=== PATIENT | male | born 1985 | race Caucasian/White ===

== ENCOUNTER 2022-07-09 11:52 | Emergency (ER) | payer BC, SELFPAY ==
[2022-07-09 12:26] VITALS: BP 113/80; PULSE 85; RESP 16; TEMP 36.2; O2SAT 97; BMI 21.1
--- NOTE | 2022-07-09 13:37 | CRLHL7_ITS ---
For Patients: As a result of the Century Cures Act, medical imaging exams and procedure reports are released immediately into your electronic medical record. You may view this report before your referring provider. If you have questions, please contact your health care provider. INDICATION: 36 year-old male. Diffuse abdominal pain for 1 week. TECHNIQUE: Contrast-enhanced abdominal pelvic CT. 79 cc nonionic Isovue-370 administered. COMPARISON: None. FINDINGS: Respiratory motion artifact at the lung bases degrades image quality. There is 5-6 mm nodule within the left lower lobe laterally, indeterminate, image 4 series 3., There is no evidence for acute appendicitis. A normal appendix is present for example on image 34 series 4. There are few mildly prominent lymph nodes in the terminal ileal mesentery within the right lower quadrant. Please see for example image 32 series 4. These are likely reactive. There is no evidence for small or large bowel obstruction ileus. The stomach and duodenum are largely decompressed but grossly unremarkable. The liver, spleen, pancreas, gallbladder, both adrenal glands and both kidneys are within normal limits. There are few tiny renal cortical cysts. No solid renal mass or stone. Normal caliber abdominal aorta and iliac arteries. Normal inferior vena cava. Normal urinary bladder, prostate gland, and seminal vesicles. No ascites or hernias. Normal included skeleton. IMPRESSION: 1. No acute abdominopelvic process identified. Specifically there is no evidence for appendicitis or diverticular disease. 2. Few minimally prominent lymph nodes within the terminal ileal mesentery nonspecific but likely reactive. 3. Indeterminate 5-6 mm pulmonary nodule left lung base. In a nonsmoker this is of doubtful clinical significance. Please note that all CT scans at this facility use dose modulation, iterative reconstruction, and/or weight-based dosing when appropriate to reduce radiation dose to as low as reasonably achievable. Dictated by Cornelius Majano MD @ 07/09/2022 3:10:21 PM (Electronically Signed)
--- NOTE | 2022-07-09 13:39 | ED_ITS ---
HPI - General Adult General Chief complaint: Abdominal Pain Stated complaint: Abdominal pain Time Seen by Provider: 07/09/22 12:13 History of Present Illness HPI narrative: Patient is a 36 year white male with significant anxiety for which she takes Xanax. He is trying to get disability for his anxiety. He is also on citalopram. Over the last 9-10 days he has had increasing abdominal discomfort ?he pushes on his abdomen feels ?it's bubbly? he has no real tenderness but does not feel the same as normal after he eats. He has had no weight loss, night sweats, blood in his stool, diarrhea, dysuria frequency or hematuria. Patient has generally been healthy. His mom has rheumatoid arthritis she is here with him today. He has never had her inflammatory bowel disease, Crohn's, ulcerative colitis but does have a family member who does have Crohn's. He has had no weight loss. His anxiety has been higher since he has been sick over the last week. He has not traveled or eaten out. He denies others being sick with similar illness. Stool pattern has been normal Related Data Home Medications Medication Instructions Recorded Confirmed alprazolam 1 mg tablet mg 07/09/22 citalopram 20 mg tablet mg 07/09/22 Allergies Allergy/AdvReac Type Severity Reaction Status Date / Time No Known Drug Allergies Allergy Verified 07/09/22 13:50 Review of Systems Status of ROS: Reports: 10 or more systems reviewed and unremarkable except as noted in History and below PFSH PFS Social History Smoking Status: Never smoker Do you use any of these nicotine containing products: E-Cigarettes Second hand tobacco smoke exposure: No How often do you have a drink containing alcohol: never AUDIT-C Alcohol total score: 0 Non-prescribed substance use: denies use Exam Narrative: Exam Narrative: Objective: Rides in no distress Vital signs unremarkable HEENT is unremarkable no scleral icterus mouth clear Neck is supple Chest clear Heart rhythm regular no murmur Abdomen benign soft nontender no masses no rebound no peritonitis, he does r eport some generalized tenderness but again no rebound or guarding Extremities are no edema Neurologic nonfocal Good peripheral perfusion noted Patient's mental status is appropriate Const: Vital Signs, click to edit/add: Vital Signs - 24 hr 07/09/22 12:26 07/09/22 14:28 07/09/22 14:41 Temperature 97.2 F L Pulse Rate 69 83 Pulse Rate [Right] 85 Respiratory Rate 16 Blood Pressure 122/84 Blood Pressure [Ri ght Upper Arm] 113/80 Pulse Oximetry 97 99 99 Oxygen Delivery Me thod Room Air 07/09/22 15:00 07/09/22 15:01 07/09/22 15:30 Temperature Pulse Rate 73 80 70 Pulse Rate [Right] Respiratory Rate Blood Pressure 119/92 H Blood Pressure [Ri ght Upper Arm] Pulse Oximetry 100 92 99 Oxygen Delivery Me thod Course Vital Signs Vital signs: Initial Vital Signs Temperature 97.2 F L 07/09/22 12:26 Temperature Source Temporal Artery Scan 07/09/22 12:26 Pulse Rate 85 07/09/22 12:26 Pulse Rhythm 07/09/22 12:26 Respiratory Rate 16 07/09/22 12:26 Blood Pressure 113/80 07/09/22 12:26 Blood Pressure Mean 91 07/09/22 12:26 Blood Pressure Position Sitting 07/09/22 12:26 Pulse Oximetry 97 07/09/22 12:26 Oxygen Delivery Method 07/09/22 12:26 Vital Signs Temperature 97.2 F L 07/09/22 12:26 Pulse Rate 85 07/09/22 12:26 Respiratory Rate 16 07/09/22 12:26 Blood Pressure 113/80 07/09/22 12:26 Pulse Oximetry 97 07/09/22 12:26 Oxygen Delivery Method 07/09/22 12:26 Temperature 97.2 F L 07/09/22 12:26 Pulse Rate 70 07/09/22 15:30 Respiratory Rate 16 07/09/22 12:26 Blood Pressure 119/92 H 07/09/22 15:01 Pulse Oximetry 99 07/09/22 15:30 Oxygen Delivery Method 07/09/22 12:26 Medical Decision Making MDM Narrative Medical decision making narrative: Patient reports he has had significant anxiety, has been sick for about a week. He does not feel this is related to anxiety. He is concerned about his general health. Because of his persistent abdominal symptoms I think it be reasonable to get a CT of his abdomen as well as lab studies to reassure him that if in fact they are normal. Disposition pending findings. Ativan IV given as well as 1 L normal saline. Differential would be broad including inflammatory bowel disease, diverticulitis, colitis, acid peptic disease, anxiety. Addendum: The patient's CT scan looks largely unremarkable he has got a small non worrisome nodule in the left lower lung, he does report that he worked its in gentle and multi meal and probably should have a repeat scan in about a year. There is no evidence of appendicitis or other intra-abdominal infection. Patient's laboratory studies look reassuring, he is much more calm after Ativan and fluids IV he does have a couple is lymph nodes in his mesenteric area which certainly could be from a viral infection his labs look reassuring as mention is CRP is less than 0.5 amylase is borderline at 112, and all as viral testing as mention was negative including mono screen. At this point recommend rest fluids Tylenol update his regular doctor in couple of days, return sooner problems or concerns or worsening. Phi was comfortable plan at this time. Lab Data Labs: Lab Results 07/09/22 07/09/22 07/09/22 Range/Units 13:53 13:53 13:53 WBC 5.68 (4.50-11.00) K/uL RBC 4.88 (4.30-5.90) m/uL Hgb 13.8 (13.5-17.5) gm/dL Hct 42.4 (37.0-53.0) % MCV 87 (80-100) fL MCH 28 (26-34) pg MCHC 33 (32-36) gm/dL RDW Coeff of Anirudh 12.5 (11.5-15.5) % Plt Count 194 (140-440) K/uL Neut % (Auto) 55.6 (42.0-72.0) % Lymph % (Auto) 34.9 (20-44) % [place] % (Auto) 6.9 (0.0-11.0) % Eos % (Auto) 2.1 (0.0-7.0) % Baso % (Auto) 0.5 (0.0-3.0) % Neut # (Auto) 3.16 (1.7-7.0) K/uL Lymph # (Auto) 1.98 (0.90-2.90) K/uL [place] # (Auto) 0.40 (0.00-0.90) K/UL Eos # (Auto) 0.12 (0.00-0.50) K/uL Baso # (Auto) 0.03 (0.00-0.30) K/uL Sodium 141 (135-149) mmol/L Potassium 4.4 (3.6-5.1) mmol/L Chloride 106 (96-114) mmol/L Carbon Dioxide 31 (20-32) mmol/L BUN 12 (5-24) mg/dL Creatinine 1.4 (0.5-1.5) mg/dL Estimated Creat Clear 74.88 Estimated GFR 67 ml/min Glucose 87 (60-115) mg/dL Calcium 9.1 (8.4-10.6) mg/dL Total Bilirubin 0.6 (0.1-1.5) mg/dL Direct Bilirubin 0.2 (0.0-0.5) mg/dL AST 16 (12-35) U/L ALT 15 (4-50) U/L Alkaline Phosphatase 45 (40-150) U/L C-Reactive Protein < 0.5 L (0.5-1.0) mg/dL Total Protein 6.6 (6.0-8.3) g/dL Albumin 4.2 (3.3-5.0) g/dL Amylase 112 H (18-89) U/L TSH (0.270-4.20) uIU/mL Urine Color (Yellow) Urine Appearance (Clear) Urine pH (5.0-8.5) Ur Specific [place] (1.000-1.030) Urine Protein (Negative) Urine Glucose (UA) (Negative) Urine Ketones (Negative) Urine Blood (Negative) Urine Nitrite (Negative) Urine Bilirubin (Negative) Urine Urobilinogen (0.2-1.0) Ur Leukocyte Esterase (Negative) Urine RBC (0-2) Urine WBC (0-5) Urine WBC Clumps (None) Ur Squamous Epith Cells (None-Few) Urine Bacteria (None) SARS-CoV-2 (PCR) (Negative) Monoscreen Negative (Negative) Influenza Type A (PCR) (Negative) Influenza Type B (PCR) (Negative) RSV (PCR) (Negative) 07/09/22 07/09/22 07/09/22 Range/Units 13:53 13:53 15:54 WBC (4.50-11.00) K/uL RBC (4.30-5.90) m/uL Hgb (13.5-17.5) gm/dL Hct (37.0-53.0) % MCV (80-100) fL MCH (26-34) pg MCHC (32-36) gm/dL RDW Coeff of Anirudh (11.5-15.5) % Plt Count (140-440) K/uL Neut % (Auto) (42.0-72.0) % Lymph % (Auto) (20-44) % [place] % (Auto) (0.0-11.0) % Eos % (Auto) (0.0-7.0) % Baso % (Auto) (0.0-3.0) % Neut # (Auto) (1.7-7.0) K/uL Lymph # (Auto) (0.90-2.90) K/uL [place] # (Auto) (0.00-0.90) K/UL Eos # (Auto) (0.00-0.50) K/uL Baso # (Auto) (0.00-0.30) K/uL Sodium (135-149) mmol/L Potassium (3.6-5.1) mmol/L Chloride (96-114) mmol/L Carbon Dioxide (20-32) mmol/L BUN (5-24) mg/dL Creatinine (0.5-1.5) mg/dL Estimated Creat Clear Estimated GFR ml/min Glucose (60-115) mg/dL Calcium (8.4-10.6) mg/dL Total Bilirubin (0.1-1.5) mg/dL Direct Bilirubin (0.0-0.5) mg/dL AST (12-35) U/L ALT (4-50) U/L Alkaline Phosphatase (40-150) U/L C-Reactive Protein (0.5-1.0) mg/dL Total Protein (6.0-8.3) g/dL Albumin (3.3-5.0) g/dL Amylase (18-89) U/L TSH 2.160 (0.270-4.20) uIU/mL Urine Color Yellow (Yellow) Urine Appearance Clear (Clear) Urine pH 7.0 (5.0-8.5) Ur Specific [place] 1.015 (1.000-1.030) Urine Protein Negative (Negative) Urine Glucose (UA) Negative (Negative) Urine Ketones Negative (Negative) Urine Blood Negative (Negative) Urine Nitrite Negative (Negative) Urine Bilirubin Negative (Negative) Urine Urobilinogen 0.2 (0.2-1.0) Ur Leukocyte Esterase Negative (Negative) Urine RBC 0-2 (0-2) Urine WBC 0-2 (0-5) Urine WBC Clumps None (None) Ur Squamous Epith Cells None (None-Few) Urine Bacteria None (None) SARS-CoV-2 (PCR) Negative SARS-CoV-2 (Negative) Monoscreen (Negative) Influenza Type A (PCR) Negative PCR FLU A (Negative) Influenza Type B (PCR) Negative PCR FLU B (Negative) RSV (PCR) Negative PCR RSV (Negative) Discharge Plan Discharge Clinical Impression: Anxiety, Abdominal pain Patient Disposition: Home w/ Parent or Adult Condition: Improved Additional Instructions: Thank you rest light activity, yogurt, 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 Otherwise follow-up with primary care in the next 2-3 days. Activity Level: Light activity Discharge Diet: Regular Prescriptions: No Action alprazolam 1 mg tablet Label Comments: TAKE ONE TABLET BY MOUTH THREE TIMES DAILY NEEDED citalopram 20 mg tablet Label Comments: TAKE ONE TABLET BY MOUTH ONE TIME DAILY Follow Up/Referrals: Nehemiah Veloz MD [Staff Physician] - Stand Alone Forms: [employer] Info Instructions
[2022-07-09] MEDS: LORazepam 2 MG/ML inj 1 MG IVP (13:56)
[2022-07-09] MEDS: 0.9 % SODIUM CHLORIDE 1000 ml 1,000 ML 6000 ML IV (13:56)
[2022-07-09 14:14] LABS: Mono Screen* Negative (Negative)
[2022-07-09 14:16] LABS: Basophils Absolute Auto 0.03 K/uL (0.00-0.30); Basophils Percent Auto 0.5 % (0.0-3.0); Eosinophils Absolute Auto 0.12 K/uL (0.00-0.50); Eosinophils Percent Auto 2.1 % (0.0-7.0); Hematocrit 42.4 % (37.0-53.0); Hemoglobin* 13.8 gm/dL (13.5-17.5); Lymphocytes Absolute Auto 1.98 K/uL (0.90-2.90); Lymphocytes Percent Auto 34.9 % (20-44); Mean Corpuscular HGB Conc 33 gm/dL (32-36); Mean Corpuscular Hemoglobin 28 pg (26-34); Mean Corpuscular Volume 87 fL (80-100); Monocytes Percent Auto 6.9 % (0.0-11.0); Neutrophils Absolute Auto 3.16 K/uL (1.7-7.0); Neutrophils Percent Auto 55.6 % (42.0-72.0); Platelet Count* 194 K/uL (140-440); RDW Coefficient of Variation % 12.5 % (11.5-15.5); Red Blood Count 4.88 m/uL (4.30-5.90); White Blood Count* 5.68 K/uL (4.50-11.00)
[2022-07-09 14:24] LABS: Slide Review Reflex No
[2022-07-09 14:28] VITALS: BP 122/84; PULSE 69; O2SAT 99
[2022-07-09 14:31] LABS: Chloride* 106 mmol/L (96-114)
[2022-07-09 14:32] LABS: Albumin* 4.2 g/dL (3.3-5.0); Potassium* 4.4 mmol/L (3.6-5.1); Sodium* 141 mmol/L (135-149)
[2022-07-09 14:34] LABS: Amylase* 112 U/L (18-89)
[2022-07-09 14:35] LABS: Alkaline Phosphatase* 45 U/L (40-150); Aspartate Amino Transferase* 16 U/L (12-35); Bilirubin Direct* 0.2 mg/dL (0.0-0.5); Bilirubin Total* 0.6 mg/dL (0.1-1.5); Blood Urea Nitrogen* 12 mg/dL (5-24); Carbon Dioxide* 31 mmol/L (20-32); Creatinine* 1.4 mg/dL (0.5-1.5); Est. Creatinine Clearance* 74.88; Estimated Glomerular Filt Rate 67 ml/min; Glucose* 87 mg/dL (60-115); Total Protein* 6.6 g/dL (6.0-8.3)
[2022-07-09 14:36] LABS: Alanine Aminotransferase* 15 U/L (4-50); Calcium* 9.1 mg/dL (8.4-10.6)
[2022-07-09 14:41] VITALS: PULSE 83; O2SAT 99
[2022-07-09 14:46] LABS: C Reactive Protein* < 0.5 mg/dL (0.5-1.0)
[2022-07-09 14:50] LABS: PCR FLU A Negative PCR FLU A (Negative); PCR FLU B Negative PCR FLU B (Negative); PCR RSV Negative PCR RSV (Negative)
[2022-07-09 14:53] LABS: SARS PCR* Negative SARS-CoV-2 (Negative)
[2022-07-09 15:00] VITALS: PULSE 73; O2SAT 100
[2022-07-09 15:01] VITALS: BP 119/92; PULSE 80; O2SAT 92
[2022-07-09 15:30] VITALS: PULSE 70; O2SAT 99
[2022-07-09 16:04] LABS: Appearance Urine Clear (Clear); Bilirubin Urine Negative (Negative); Blood Urine Negative (Negative); Color Urine Yellow (Yellow); Glucose Urine Negative (Negative); Ketones Urine Negative (Negative); Leukocyte Esterase Urine Negative (Negative); Nitrite Urine Negative (Negative); Protein Urine Negative (Negative); Specific Gravity Urine 1.015 (1.000-1.030); Urobilinogen Urine 0.2 (0.2-1.0)
[2022-07-09 16:27] LABS: RBC Urine 0-2 (0-2); WBC Urine 0-2 (0-5)
== END 2022-07-09 16:01 | disposition home or self-care (01) ==
PROVIDERS: Emergency Provider Family Medicine
DX: R10.9 Unspecified abdominal pain (principal)
CPT/HCPCS: 36415; 74177; 80048; 80076; 81001; 82150; 84443; 85025; 86140; 86308; 87502; 87634; 87635; 96374; 99283; 99284; 99285; J2060; J7030; Q9967

== ENCOUNTER 2023-02-09 03:53 | Emergency (ER) | payer BC, SELFPAY ==
[2023-02-09 03:58] VITALS: BP 123/83; PULSE 85; RESP 16; TEMP 36.1; O2SAT 99
[2023-02-09] MEDS: TETANUS/DIPHTH/PERTUSSIS 0.5 ML SYRINGE IM (04:24)
[2023-02-09 04:55] LABS: Albumin* 4.6 g/dL (3.3-5.0); Chloride* 103 mmol/L (96-114)
[2023-02-09 04:56] LABS: Potassium* 3.9 mmol/L (3.6-5.1); Sodium* 140 mmol/L (135-149)
[2023-02-09 04:58] LABS: Alanine Aminotransferase* 22 U/L (4-50); Alkaline Phosphatase* 69 U/L (40-150); Anion Gap 10 mEq/L (7-15); Aspartate Amino Transferase* 19 U/L (12-35); Bilirubin Total* 0.8 mg/dL (0.1-1.5); Blood Urea Nitrogen* 18 mg/dL (5-24); Carbon Dioxide* 27 mmol/L (20-32); Creatinine* 1.6 mg/dL (0.5-1.5); Estimated Glomerular Filt Rate 57 ml/min; Glucose* 85 mg/dL (60-115); Total Protein* 6.9 g/dL (6.0-8.3)
[2023-02-09 04:59] LABS: Calcium* 8.9 mg/dL (8.4-10.6)
--- NOTE | 2023-02-09 05:29 | ED_ITS ---
HPI - General Adult General Chief complaint: Unspecified Complaint, Adult Stated complaint: has been feeling ill Time Seen by Provider: 02/09/23 04:11 History of Present Illness HPI narrative: Patient is a 37-year-old gentleman who has severe chronic anxiety. He stepped on a tack several days ago and has no signs of cellulitis is worried this tetanus shot is not up-to-date. There is no remaining redness from the puncture site. No bleeding. Patient feels like he has muscle twitches general malaise body aches fatigue he feels like there is something definitely wrong. He has no localizing symptoms otherwise in his usual state of health. He has had no nausea no vomiting no fevers no chills his home medication is citalopram and alprazolam. He has had no drugs or alcohol and otherwise is feeling his usual state health. He i not using any substances at this time. Related Data Home Medications Medication Instructions Recorded Confirmed alprazolam 1 mg tablet mg 07/09/22 citalopram 20 mg tablet mg 07/09/22 Allergies Allergy/AdvReac Type Severity Reaction Status Date / Time No Known Drug Allergies Allergy Verified 07/09/22 13:50 Review of Systems Status of ROS: Reports: 10 or more systems reviewed and unremarkable except as noted in History and below [facility] Social History Smoking Status: Never smoker Do you use any of these nicotine containing products: E-Cigarettes Second hand tobacco smoke exposure: No How often do you have a drink containing alcohol: never AUDIT-C Alcohol total score: 0 Non-prescribed substance use: denies use Exam Narrative: Exam Narrative: EXAM GENERAL: Patient appears comfortable and well. Patient is very thin. EYES: No scleral icterus. ENT: Tympanic membranes and oropharynx normal. THYROID: no thyroid nodules or thyromegaly. LYMPH: No supraclavicular or cervical lymphadenopathy. SKIN: Visible skin seen during exam normal or with benign process only. EXT: No dependent lower extremity pedal edema. HEART: Regular rate and rhythm with no murmurs, rubs, or gallops. LUNGS: Clear to auscultation bilaterally with no crackles or wheezes. ABD: Soft, non tender, non distended. PSYCH: Good eye contact, speech is not pressured. Const: Vital Signs, click to edit/add: Vital Signs - 24 hr 02/09/23 03:58 Temperature 97.0 F L Pulse Rate [Left P ulse Oximeter] 85 Respiratory Rate 16 Blood Pressure [Ri ght Upper Arm] 123/83 Pulse Oximetry 99 Oxygen Delivery Me thod Room Air Course Course Hospital Course: Patient seen and examined. Vital Signs Vital signs: Initial Vital Signs Temperature 97.0 F L 02/09/23 03:58 Temperature Source Temporal Artery Scan 02/09/23 03:58 Pulse Rate 85 02/09/23 03:58 Pulse Rhythm Regular 02/09/23 03:58 Respiratory Rate 16 02/09/23 03:58 Blood Pressure 123/83 02/09/23 03:58 Blood Pressure Mean 96 02/09/23 03:58 Blood Pressure Position Sitting 02/09/23 03:58 Pulse Oximetry 99 02/09/23 03:58 Oxygen Delivery Method Room Air 02/09/23 03:58 Vital Signs Temperature 97.0 F L 02/09/23 03:58 Pulse Rate 85 02/09/23 03:58 Respiratory Rate 16 02/09/23 03:58 Blood Pressure 123/83 02/09/23 03:58 Pulse Oximetry 99 02/09/23 03:58 Oxygen Delivery Method Room Air 02/09/23 03:58 Temperature 97.0 F L 02/09/23 03:58 Pulse Rate 85 02/09/23 03:58 Respiratory Rate 16 02/09/23 03:58 Blood Pressure 123/83 02/09/23 03:58 Pulse Oximetry 99 02/09/23 03:58 Oxygen Delivery Method Room Air 02/09/23 03:58 Medical Decision Making [facility] Narrative Medical decision making narrative: Patient is a 37-year-old gentleman with history of anxiety comes in today after stepping on a tack and feeling like he has body aches general malaise weakness and fatigue. I will see any major injuries. He is very thin. I did send off CBC and basic metabolic panel. Does show that his creatinine is 1.6 we do a previous creatinine 1.4. I do not believe this is was getting his symptoms but did inform him of these results. We did update his tetanus shot and I did recommend close outpatient follow-up. Lab Data Labs: Lab Results 02/09/23 Range/Units 04:31 WBC 4.83 (4.50-11.00) K/uL RBC 5.09 (4.30-5.90) m/uL Hgb 14.1 (13.5-17.5) gm/dL Hct 44.2 (37.0-53.0) % MCV 87 (80-100) fL MCH 28 (26-34) pg MCHC 32 (32-36) gm/dL RDW Coeff of Anirudh 12.1 (11.5-15.5) % Plt Count 176 (140-440) K/uL Neut % (Auto) 61.5 (42.0-72.0) % Lymph % (Auto) 26.1 (20-44) % [place] % (Auto) 8.1 (0.0-11.0) % Eos % (Auto) 2.9 (0.0-7.0) % Baso % (Auto) 0.8 (0.0-3.0) % Neut # (Auto) 2.97 (1.7-7.0) K/uL Lymph # (Auto) 1.26 (0.90-2.90) K/uL [place] # (Auto) 0.40 (0.00-0.90) K/UL Eos # (Auto) 0.14 (0.00-0.50) K/uL Baso # (Auto) 0.04 (0.00-0.30) K/uL Abs Immat Gran (auto) 0.03 (0.00-0.30) K/uL Imm/Tot Granulo (auto) 0.6 % Sodium 140 (135-149) mmol/L Potassium 3.9 (3.6-5.1) mmol/L Chloride 103 (96-114) mmol/L Carbon Dioxide 27 (20-32) mmol/L Anion Gap 10 (7-15) mEq/L BUN 18 (5-24) mg/dL Creatinine 1.6 H (0.5-1.5) mg/dL Estimated GFR 57 ml/min Glucose 85 (60-115) mg/dL Calcium 8.9 (8.4-10.6) mg/dL Total Bilirubin 0.8 (0.1-1.5) mg/dL AST 19 (12-35) U/L ALT 22 (4-50) U/L Alkaline Phosphatase 69 (40-150) U/L Total Protein 6.9 (6.0-8.3) g/dL Albumin 4.6 (3.3-5.0) g/dL Discharge Plan Discharge Clinical Impression: Weakness Condition: Stable Instructions: Weakness (ED) Additional Instructions: Continue current care Follow-up with your doctor to discuss laboratory studies. Activity Level: No Restrictions Discharge Diet: Regular Prescriptions: No Action alprazolam 1 mg tablet Patient Comments: TAKE ONE TABLET BY MOUTH THREE TIMES DAILY NEEDED citalopram 20 mg tablet Patient Comments: TAKE ONE TABLET BY MOUTH ONE TIME DAILY Follow Up/Referrals: Provider,Not a Local [Primary Care Provider] - Stand Alone Forms: MyHealth Info Instructions
[2023-02-09 05:50] LABS: Basophils Absolute Auto 0.04 K/uL (0.00-0.30); Basophils Percent Auto 0.8 % (0.0-3.0); Eosinophils Absolute Auto 0.14 K/uL (0.00-0.50); Eosinophils Percent Auto 2.9 % (0.0-7.0); Hematocrit 44.2 % (37.0-53.0); Hemoglobin* 14.1 gm/dL (13.5-17.5); Immature Granulocytes Abs Auto 0.03 K/uL (0.00-0.30); Immature Granulocytes Pct Auto 0.6 %; Lymphocytes Absolute Auto 1.26 K/uL (0.90-2.90); Lymphocytes Percent Auto 26.1 % (20-44); Mean Corpuscular HGB Conc 32 gm/dL (32-36); Mean Corpuscular Hemoglobin 28 pg (26-34); Mean Corpuscular Volume 87 fL (80-100); Monocytes Percent Auto 8.1 % (0.0-11.0); Neutrophils Absolute Auto 2.97 K/uL (1.7-7.0); Neutrophils Percent Auto 61.5 % (42.0-72.0); Platelet Count* 176 K/uL (140-440); RDW Coefficient of Variation % 12.1 % (11.5-15.5); Red Blood Count 5.09 m/uL (4.30-5.90); White Blood Count* 4.83 K/uL (4.50-11.00)
[2023-02-09 05:55] LABS: Slide Review Reflex No
[2023-02-09 05:58] VITALS: BP 132/68; PULSE 72; RESP 16; O2SAT 99
== END 2023-02-09 06:06 | disposition home or self-care (01) ==
PROVIDERS: Emergency Provider Internal Medicine
DX: R53.1 Weakness (principal); Z23 Encounter for immunization
CPT/HCPCS: 36415; 80053; 85025; 90471; 90715; 99283; 99284

== ENCOUNTER 2025-01-02 00:03 | Inpatient (IN) | payer BC, SELFPAY ==
[2025-01-02] VITALS (42 sets, daily range): BP systolic 83–113; BP diastolic 51–85; PULSE 76–95; RESP 14–23; TEMP 36.1–39.5; O2SAT 91–99; BMI 21.8
--- OUTSIDE RECORDS SUMMARY | 2025-01-02 00:06 | XMS_ITS | Clinical Summary ---
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 1-2 hours every night before your regular bedtime and go outside or use a bright light every morning for at least 30 min. Ensure it is a brand which is [facility]SING HOME verified. 45 Tablet 3 4 Active propranoloL (INDERAL) 60 mg tabletIndicatio ns:Panic disorder with agoraphobia Take 1 tablets (60 mg) by mouth twice daily. May also take 0.5-1 tablet (30-60 mg) once daily if needed for anxiety. Wait 1 hour before repeating a dose. 270 Tablet 3 4 Active FLUoxetine 20 mg capsuleIndicati ons:Generalized anxiety disorder,Panic disorder with agoraphobia Take 1 Capsule (20 mg) by mouth once daily. Further refills will be prescribed during an appointment 90 Capsule 5 Active citalopram 20 mg tabletIndicatio ns:Generalized anxiety disorder,Panic disorder with agoraphobia Take 1 Tablet (20 mg) by mouth once daily. 90 Tablet 3 5 Active clonazePAM 0.5 mg tabletIndicatio ns:Generalized anxiety disorder,Panic disorder with agoraphobia Take 1.5 Tablets (0.75 mg) by mouth once daily. In addition to the 1 mg tablet at bedtime 45 Tablet 2 5 Active clonazePAM 1 mg tabletIndicatio ns:Generalized anxiety disorder,Panic disorder with agoraphobia Take 1 Tablet (1 mg) by mouth at bedtime. 30 Tablet 2 5 Active FLUoxetine (PROZAC) 10 mg capsuleIndicati ons:Panic disorder with agoraphobia,Gen eralized anxiety disorder Take 1 Capsule (10 mg) by mouth once daily. 90 Capsule 3 4 025 Discontin ued(*Medi cation adjustmen t) citalopram (CELEXA) 20 mg tabletIndicatio ns:Generalized anxiety disorder,Panic disorder with agoraphobia Take 1 Tablet (20 mg) by mouth once daily in the morning. In addition to the evening dose 90 Tablet 3 5 025 Discontin ued(*Medi cation adjustmen t) clonazePAM 0.5 mg tabletIndicatio ns:Generalized anxiety disorder,Panic disorder with agoraphobia Take 1.5 Tablets (0.75 mg) by mouth once daily. In addition to the 1 mg tablet at bedtime 45 Tablet 2 5 025 Discontin ued(*Medi cation adjustmen t) clonazePAM 1 mg tabletIndicatio ns:Generalized anxiety disorder,Panic disorder with agoraphobia TAKE ONE TABLET BY MOUTH AT BEDTIME 30 Tablet 2 5 025 Discontin ued(*Medi cation adjustmen t) Active Problems Problem Noted Date Diagnosed Date Suspected Circadian rhythm s leep-wake disorder, non-24 hour sleep-wake type, persistent 11/29/2023 Generalized anxiety disorder, including health a nxiety 01/08/2023 Elevated blood pressure read ing without diagnosis of hypertension 08/08/2017 Panic disorder with agoraphobia 05/02/2015 Controlled substance agreeme nt signed with psychiatry for benzodiazepines 10/30/2012 Overview (10/08/2022): Julián Nunez MD .................... 10/08/2022 3:39 PM Resolved Problems Problem Noted Date Diagnosed Date Resolved Date Anxiety state, unspecified 06/03/2007 1 07/02/2014 Encounters Date Type Department Care Team Description 12/10/2024 10:00 AM CDT Telemedicine [facility] [address] [place] [address] Julián Nunez MD Medication Management 12/10/2024 Travel 10/12/2024 10:00 AM CDT Office Visit [facility] [address] [facility] [address] Julián Nuenz MD Medication Management; Follow Up 10/11/2024 Travel from Last 3 Months Immunizations Immunization Administration Dates Next Due DTaP 1985 Influenza, IIV3 (Age 6-35 mos) 05/09/2009 Polio Virus, Unspecified 1985 Tdap 11/04/2008 Family History Medical History Relation Name Comments Other Father FACTOR V [employer]ID[employer]ATION Alcoholism Maternal Uncle Autoimmune disease Maternal Uncle Drug Abuse Maternal Uncle Rheum arthritis Mother Thyroid Disease Mother Cancer-colon Neg. 1 Cancer-prostate Neg. 2 Diabetes Neg. 3 Heart Disease Neg. 4 Crohn's disease Other Cousin ADD / ADHD Sister Arrhythmia No Family History Relation Name Status Comments Father Maternal Uncle Alive Mother Neg. 1 Neg. 2 Neg. 3 Neg. 4 Other Cousin Sister Social History Tobacco Use Types Packs/Day Years Used Date Smoking Tobacco: Never Smokeless Tobacco: Former Chew Quit: 11/20/2021 Tobacco Cessation:Counseling Given: Not Answered Comments:vapes Alcohol Use Standard Drinks/Week Comments Not Currently 0 (1 standard drink = 0.6 oz pur e alcohol) last drink prior to 2017 PHQ-2 Answer Date Recorded PHQ-2 TOTAL SCORE 0 12/10/2024 Alcohol Use Answer Date Recorded How often do you have a drink containing alcohol ? 1 10/04/2022 How many drinks containing a lcohol do you have on a typical day when you are drinking? 0 10/04/2022 How often do you have five or more drinks on one occasion? 0 10/04/2022 Financial Resource Strain Answer Date R ecorded Difficulty of Paying Living Expenses Not on file 06/14/2021 Difficulty of Paying Living Expenses Not on file 06/14/2021 Education Answer Date Recorded What is the highest level of school you have completed or the highest degree you have received? 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 Gender Identity Not on file Sexual Orientation Not on file Occupation Industry Job Start Date Job End Date unemployed Not on file Not on file Not on file Obstetrics History Last Filed Vital Signs Vital Sign Reading Time Taken Comments Blood Pressure 154/95 10/12/2024 10:05 AM CDT Pulse 54 10/12/2024 10:05 AM CDT Temperature 37.2 C (99 F) 12/04/2021 10:53 AM CDT Respiratory Rate - - Oxygen Saturation 99% 07/26/2022 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 Inhaled Oxygen Concentration - - Weight 74.8 kg (165 lb) 10/12/2024 10:02 AM CDT Height 185.4 cm (6' 1) 07/26/2022 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 Body Mass Index 21.77 07/26/2022 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 Plan of Treatment Upcoming Encounters Date Type Department Care Team (Late st Contact Info) Description 02/25/2025 10:00 AM CDT Telemedicine [facility] [address] [place] [address] Julián Nunez MD [address] [place] [address] Health Maintenance Due Date Last Done Comments HIV for age 15-65 2000 Hepatitis C screening for age 18-79 08/24/2003 Hepatitis B series for 19+ (1 of 3 - 19+ 3-dose series) 2004 Tetanus booster 11/04/2018 11/04/2008 Lipids for age 35-44 2020 BMI (ht and wt on same day) for age 18+ 07/26/2023 07/26/2022, 12/04/2021, 05/27/2019, Additional history exists COVID-19 vaccine series ( season) 2024 12/13/2020 Influenza Vaccine (#1) 2025 05/09/2009 Depression screening for age 12+ 12/10/2025 12/10/2024, 10/12/2024, 09/03/2024, Additional history exists Pneumococcal series for age 6-49 Aged Out No longer eligible based on patient's age to complete this topic Goals Goal Patient Goal Type Associated Problems Recent Progress Patient-Stated? Author BLOOD PRESSURE - Maintains BP less than 140/90 Blood Pressure No Aidan Choi MD Procedures Procedure Name Priority Date/Time Associated Diagnosis Comments COMPLIANCE DRUG ANALYSIS Routine 10/12/2024 10:42 AM CDT Controlled substance agreement signed with psychiatry for benzodiazepines Long-term use of high-risk medication from Last 3 Months Results * (ABNORMAL) COMPLIANCE DRUG ANALYSIS (10/12/2024 10:42 AM CDT) 6-MONOACETYL MORPHINE NEG NEG ng/mL 10/14/2024 11:37 AM T [facility] AMPHETAMINE URINE NEG <=500 ng/mL 10/14/2024 11:37 AM T [facility] BARBITURATE URINE NEG <=200 ng/mL 10/14/2024 11:37 AM T [facility] BENZODIAZEPINE URINE NEG <=100 ng/mL 10/14/2024 11:37 AM T [facility] BUPRENORPHRINE URINE NEG <=5 ng/mL 09/17 11:37 AM T [facility] COCAINE METAB URINE NEG <=300 ng/mL 10/14/2024 11:37 AM T [facility] ETHYLGLUCURONIDE URINE NEG <=250 ng/mL 10/14/2024 11:37 AM T [facility] FENTANYL URINE NEG <=5 ng/mL 10/14/2024 11:37 AM T [facility] METHADONE URINE NEG <=300 ng/mL 10/14/2024 11:37 AM T [facility] OPIATES URINE NEG <=300 ng/mL 10/14/2024 11:37 AM T [facility] OXYCODONE URINE NEG <=100 ng/mL 10/14/2024 11:37 AM T [facility] PROPOXYPHENE URINE NEG <=300 ng/mL 10/14/2024 11:37 AM T [facility] THC 50 URINE NEG <=50 ng/mL 10/14/2024 11:37 AM [facility] TRAMADOL NEG <=200 ng/mL 10/14/2024 11:37 AM [facility] PH URINE 6.6 5.0 - 7.0 10/14/2024 11:37 AM [facility] CREAT UR 16(L) >=20 mg/dL 10/14/2024 11:37 AM [facility] MASS SPECTROMETRY URINE See Below 10/14/2024 11:37 AM [facility] Comment:Citalopram and Cital opram metabolite present. Urine URINE SPECIMEN / Unknown Non-Blood / Unknown 10/12/2024 10:42 AM T 10/12/2024 10:[address] [facility] - 10/14/2024 11:37 AM [facility] Current Outpatient Medications: citalopram (CELEXA) 20 mg tablet, Take 1 Tablet (20 mg) by mouth once daily in the morning. In addition to the evening dose citalopram 10 mg tablet, Take 0.5 Tablets (5 mg) by mouth once daily. in the evening in addition to the morning dose clonazePAM 0.5 mg tablet, Take 1.5 Tablets (0.75 mg) by mouth once daily. In addition to the 1 mg tablet at bedtime clonazePAM 1 mg tablet, TAKE ONE TABLET BY MOUTH AT BEDTIME FLUoxetine (PROZAC) 10 mg capsule, Take 1 Capsule (10 mg) by mouth once daily. melatonin 1 mg tablet, Take 0.5 Tablets (0.5 mg) by mouth once daily in the evening. 1-2 hours every night before your regular bedtime and go outside or use a bright light every morning for at least 30 min. Ensure it is a brand which is [facility] verified. propranoloL (INDERAL) 60 mg tablet, Take 1 tablets (60 mg) by mouth twice daily. May also take 0.5-1 tablet (30-60 mg) once daily if needed for anxiety. Wait 1 hour before repeating a dose. No current facility-administered medications for this visit. As of 10/12/2024 Release to patient->Immediate us Julián Nunze MD URINE Final Result [facility] [address] [place] [address], [place] from Last 3 Months Insurance COUNT INCLUDES THE [facility] Care Teams It Network Administrator Relationship Specialty Start Date End Date Votel, Michael Grissom MD [address] [place] [address] PCP - General Family Practice 10/08/22
--- NOTE | 2025-01-02 00:20 | ED.ABDPAIN ---
HPI - Abdominal Pain General Time Seen by Provider: 00:20 Date Seen: 01/02/25 Chief Complaint: Abdominal Pain Stated Complaint: abd pain, fever Time Seen by Provider: 01/02/25 00:20 Source: patient Mode of arrival: ambulatory Limitations: no limitations History of Present Illness HPI narrative: 39-year-old male who comes in with 3 days of fever and abdominal pain along with nausea. Pain is in lower abdomen. Denies urinary symptoms. Denies cough, shortness of breath, chest pain. Has been taking aspirin for this. No diarrhea. No prior surgeries. Related Data Home Medications ?Medication ?Instructions ?Recorded ?Confirmed alprazolam 1 mg tablet mg 07/09/22 citalopram 20 mg tablet mg 07/09/22 Allergies Allergy/AdvReac Type Severity Reaction Status Date / Time No Known Drug Allergies Allergy Verified 07/09/22 13:50 PFSH [facility] Social History Smoking Status: Never smoker Do you use any of these nicotine containing products: E-Cigarettes Second hand tobacco smoke exposure: No How often do you have a drink containing alcohol: never AUDIT-C Alcohol total score: 0 Non-prescribed substance use: denies use Exam Narrative: Exam Narrative: General: Ill-appearing Head: Atraumatic and normocephalic Eyes: Pupils are equal reactive, extraocular motions intact, conjunctiva clear ENT: External nose and ears are normal, posterior pharynx without erythema or exudate, dry mucous membranes, cracked lips Neck: No midline cervical tenderness, full spontaneous range of motion the neck, trachea midline, no adenopathy Heart: Regular rate and rhythm no murmurs or thrills Lungs: Clear to auscultation bilaterally without wheezes or crackles Abdomen: Soft, right-sided mid and lower abdominal tenderness, nondistended with active bowel sounds Musculoskeletal: No tenderness, deformity, or edema Neurologic: Awake, alert, and oriented x3, no gross focal neurologic deficits, cranial nerves intact as tested Psych: Mood and affect are appropriate Skin: No rashes Const: Vital Signs, click to edit/add: Vital Signs - 24 hr 01/02/25 00:07 01/02/25 01:15 01/02/25 01:30 Temperature 103.1 F H Pulse Rate [Left P ulse Oximeter] 93 95 Respiratory Rate 16 16 Blood Pressure [Ri ght Upper Arm] 111/85 113/73 113/76 Pulse Oximetry 97 96 95 Oxygen Delivery Me thod Room Air Room Air Room Air 01/02/25 01:45 Temperature Pulse Rate [Left P ulse Oximeter] 95 Respiratory Rate 14 Blood Pressure [Ri ght Upper Arm] 106/73 Pulse Oximetry 93 Oxygen Delivery Me thod Course Course ED Course: Reviewed most recent psychiatry visit from September 2024, at that time patient is reporting severe anxiety in public places in the been tapering citalopram, was on Prozac, Klonopin , propanolol. Patient seen examined, presents today with abdominal pain, fever, nausea. This been going on 3 days. On exam here, patient is ill-appearing with dry mucous membranes, cracked lips, febrile although heart rate does not demonstrate expected tachycardia with this. Right-sided lower abdominal tenderness. Concern for intra-abdominal infection, appendicitis does not typically cause high fevers but certainly patient's tenderness is the right area, concern for perforation given fever and duration of symptoms. Also consider liver abscess, acute cholecystitis. Labs ordered along with fluids, Dilaudid, CT abdomen and pelvis. Abnormal ST depressions on telemetry, EKG ordered. Reevaluation(s) Time of Reevaluation #1: 01:05 Reevaluation #1: Labs independently interpreted by me with normal CBC although left shift, normal hemoglobin, creatinine 1.8, magnesium slightly low 1.4, normal lipase, normal hepatic panel. Time of Reevaluation #2: 01:13 Reevaluation #2: CT scan of the chest and panel interpreted by me negative for acute findings. CT scan of the abdomen shows small amount of fluid by the liver, inflammation small-bowel, evidence of appendicitis concerning for perforation. EKG independently interpreted by me performed at 1:22 a.m. demonstrates normal sinus rhythm rate 96, nonspecific ST depressions in 2, 3, AVF, V4 through V6, normal axis, QTC 411, AL 174. No prior for comparison. Rechecked in updated patient and family regarding findings and plan, radiology interpretation CT scan is pending at this point. Troponin added due to EKG changes the patient has had no chest pain. Time of Reevaluation #3: 01:56 Reevaluation #3: Care discussed with Dr. Guerrero, general surgery, who reviewed the images. Patient need to have appendectomy but if troponin is elevated, will need to transfer for higher level of care and further cardiac evaluation. Troponin is pending currently. Additional Reevaluation(s): 2:20 a.m. troponin negative, care discussed with Dr. Jarrett and plan for patient to go to the OR with admission afterward Vital Signs Vital signs: Initial Vital Signs Temperature 103.1 F H 01/02/25 00:07 Temperature Source Oral 01/02/25 00:07 Pulse Rate 93 01/02/25 00:07 Pulse Rhythm Regular 01/02/25 00:07 Respiratory Rate 16 01/02/25 00:07 Blood Pressure 111/85 01/02/25 00:07 Blood Pressure Mean 93 01/02/25 00:07 Blood Pressure Position Sitting 01/02/25 00:07 Pulse Oximetry 97 01/02/25 00:07 Oxygen Delivery Method Room Air 01/02/25 00:07 Vital Signs Temperature 103.1 F H 01/02/25 00:07 Pulse Rate 93 01/02/25 00:07 Respiratory Rate 16 01/02/25 00:07 Blood Pressure 111/85 01/02/25 00:07 Pulse Oximetry 97 01/02/25 00:07 Oxygen Delivery Method Room Air 01/02/25 00:07 Temperature 103.1 F H 01/02/25 00:07 Pulse Rate 95 01/02/25 01:45 Respiratory Rate 14 01/02/25 01:45 Blood Pressure 106/73 01/02/25 01:45 Pulse Oximetry 93 01/02/25 01:45 Oxygen Delivery Method Room Air 01/02/25 01:30 Medications Administered Medications: Generic Name Dose Route Start Last Admin Trade Name Freq PRN Reason Stop Dose Admin Magnesium Sulfate 2 gm in 50 mls @ 50 mls/hr 01/02/25 01:06 01/02/25 01:44 Magnesium Iv IVPB 01/02/25 02:05 50 mls/hr ONCE ONE Administration Piperacillin Sod/Tazobactam 100 mls @ 100 mls/hr 01/02/25 01:16 01/02/25 01:36 Sod 3.375 gm/ Sodium Chloride IVPB 01/02/25 01:17 100 mls/hr ONCE ONE Administration Discontinued Medications Generic Name Dose Route Start Last Admin Trade Name Freq PRN Reason Stop Dose Admin Acetaminophen 1,000 mg 01/02/25 00:28 01/02/25 00:42 Acetaminophen 500 Mg Tablet PO 01/02/25 00:29 1,000 mg ONCE ONE Administration Hydromorphone HCl 0.5 mg 01/02/25 00:28 01/02/25 00:43 Hydromorphone 0.5 Mg/0.5 Ml Inj IVP 01/02/25 00:29 0.5 mg ONCE ONE Administration Sodium Chloride 1,000 mls @ 1,000 mls/hr 01/02/25 00:30 01/02/25 00:43 0.9 % Sodium Chloride 1000 Ml IV 01/02/25 01:29 1,000 mls/hr .Q1H VIET Administration Ondansetron HCl 4 mg 01/02/25 00:28 01/02/25 00:42 Ondansetron 2 Mg/Ml Inj IVP 01/02/25 00:29 4 mg ONCE ONE Administration MDM - Abdominal Pain Lab Data Labs: Lab Results 01/02/25 01/02/25 Range/Units 00:35 01:21 WBC 7.10 (4.50-11.00) K/uL RBC 5.39 (4.30-5.90) m/uL Hgb 15.0 (13.5-17.5) gm/dL Hct 46.6 (37.0-53.0) % MCV 87 (80-100) fL MCH 28 (26-34) pg MCHC 32 (32-36) gm/dL RDW Coeff of Anirudh 12.6 (11.5-15.5) % Plt Count 204 (140-440) K/uL Neut % (Auto) 87.6 H (42.0-72.0) % Lymph % (Auto) 9.9 L (20-44) % Stephens % (Auto) 1.7 (0.0-11.0) % Eos % (Auto) 0.3 (0.0-7.0) % Baso % (Auto) 0.4 (0.0-3.0) % Neut # (Auto) 6.20 (1.7-7.0) K/uL Lymph # (Auto) 0.70 L (0.90-2.90) K/uL Stephens # (Auto) 0.10 (0.00-0.90) K/UL Eos # (Auto) 0.02 (0.00-0.50) K/uL Baso # (Auto) 0.03 (0.00-0.30) K/uL Abs Immat Gran (auto) 0.01 (0.00-0.30) K/uL Imm/Tot Granulo (auto) 0.1 % Sodium 135 (135-149) mmol/L Potassium 4.0 (3.6-5.1) mmol/L Chloride 97 (96-114) mmol/L Carbon Dioxide 32 (20-32) mmol/L Anion Gap 6 L (7-15) mEq/L BUN 20 (5-24) mg/dL Creatinine 1.8 H (0.5-1.5) mg/dL Estimated Creat Clear 58.33 Estimated GFR 49 ml/min Glucose 99 (60-115) mg/dL Lactate 1.7 (0.5-1.9) mmol/L Calcium 8.9 (8.4-10.6) mg/dL Magnesium 1.4 L (1.5-2.6) mg/dL Total Bilirubin 1.5 (0.1-1.5) mg/dL Direct Bilirubin 0.1 (0.0-0.5) mg/dL AST 20 (12-35) U/L ALT 14 (4-50) U/L Alkaline Phosphatase 77 (40-150) U/L Troponin I < 0.01 (0.01-0.04) ng/mL Total Protein 7.1 (6.0-8.3) g/dL Albumin 4.3 (3.3-5.0) g/dL Lipase 36 (23-300) U/L Lab Acknowledgement Test Added Discharge Plan Discharge Clinical Impression: Acute appendicitis, Enterocolitis, Acute kidney injury, Hypomagnesemia Patient Disposition: XFER to OR Follow Up/Referrals: Provider,Not a Local [Non-Staff, Family Practice]
--- NOTE | 2025-01-02 00:38 | CRLHL7_ITS ---
For Patients: As a result of the Century Cures Act, medical imaging exams and procedure reports are released immediately into your electronic medical record. You may view this report before your referring provider. If you have questions, please contact your health care provider. INDICATION: Fever TECHNIQUE: CT chest, abdomen and pelvis acquired with 79 milliliters Isovue 370 IV contrast. COMPARISON: July 09, 2022. FINDINGS: CHEST: Cardiovascular structures: Heart size is normal. Thoracic aorta and main pulmonary artery are normal in caliber. Mediastinum and douglas: No mass or adenopathy. Lungs and pleura: Lungs and pleural spaces are clear. No suspicious nodules, infiltrates, or effusions. Chest wall and axilla: No mass or adenopathy. Bones: No suspicious bone lesions. Unremarkable for age. ABDOMEN AND PELVIS: Liver: Unremarkable. Gallbladder and bile ducts: Unremarkable. Pancreas: Unremarkable. Spleen: Unremarkable. Adrenal glands: Unremarkable. Kidneys: Tiny cortical hypodensities, too small to characterize. No hydronephrosis.. GI tract: Diffuse small and large bowel circumferential wall thickening with perienteric edema. Moderately distended appendix with appendicolith about the base. No bowel obstruction. Vascular structures: Unremarkable. Lymph nodes: Multiple enlarged ileocolic lymph nodes, likely reactive. Miscellaneous: Small volume free fluid likely reactive. No free air. Pelvic Organs: Mildly distended bladder with circumferential wall thickening. Recommend correlation with urinalysis if UTI suspected.. Bones: No suspicious bone lesions. Unremarkable for age. IMPRESSION: 1. Moderately distended appendix with appendicolith suggestive of acute uncomplicated appendicitis. No drainable fluid collection. 2. Diffuse small and large bowel circumferential wall thickening with perienteric edema suggestive of acute enterocolitis, likely infectious/inflammatory in etiology. No bowel obstruction. 3. No acute intrathoracic abnormality. Please note that all CT scans at this facility use dose modulation, iterative reconstruction, and/or weight-based dosing when appropriate to reduce radiation dose to as low as reasonably achievable. Dictated by Frandy Henderson MD @ 01/02/2025 1:31:33 AM (Electronically Signed)
[2025-01-02] MEDS: ACETAMINOPHEN 500 MG TABLET 1000 MG PO (00:42)
[2025-01-02] MEDS: ONDANSETRON 2 MG/ML inj 4 MG IVP ×2 (00:42→02:42)
[2025-01-02 00:45] LABS: Lactate* 1.7 mmol/L (0.5-1.9)
[2025-01-02 00:47] LABS: Hematocrit 46.6 % (37.0-53.0); Hemoglobin* 15.0 gm/dL (13.5-17.5); Immature Granulocytes Abs Auto 0.01 K/uL (0.00-0.30); Immature Granulocytes Pct Auto 0.1 %; Lymphocytes Absolute Auto 0.70 K/uL (0.90-2.90); Mean Corpuscular HGB Conc 32 gm/dL (32-36); Mean Corpuscular Hemoglobin 28 pg (26-34); Mean Corpuscular Volume 87 fL (80-100); RDW Coefficient of Variation % 12.6 % (11.5-15.5); Red Blood Count 5.39 m/uL (4.30-5.90); White Blood Count* 7.10 K/uL (4.50-11.00)
[2025-01-02 00:59] LABS: Albumin* 4.3 g/dL (3.3-5.0); Chloride* 97 mmol/L (96-114); Slide Review Reflex No; Sodium* 135 mmol/L (135-149)
[2025-01-02 01:00] LABS: Potassium* 4.0 mmol/L (3.6-5.1)
[2025-01-02 01:02] LABS: Alanine Aminotransferase* 14 U/L (4-50); Alkaline Phosphatase* 77 U/L (40-150); Aspartate Amino Transferase* 20 U/L (12-35); Bilirubin Direct* 0.1 mg/dL (0.0-0.5); Bilirubin Total* 1.5 mg/dL (0.1-1.5); Blood Urea Nitrogen* 20 mg/dL (5-24); Calcium* 8.9 mg/dL (8.4-10.6); Carbon Dioxide* 32 mmol/L (20-32); Creatinine* 1.8 mg/dL (0.5-1.5); Est. Creatinine Clearance* 58.33; Estimated Glomerular Filt Rate 49 ml/min; Glucose* 99 mg/dL (60-115); Total Protein* 7.1 g/dL (6.0-8.3)
[2025-01-02 01:03] LABS: Anion Gap 6 mEq/L (7-15)
[2025-01-02] MEDS: PIPERACILLIN/TAZOBACTAM 3.375 GM in 0.9 % SODIUM CHLORIDE Mini-bag 100 ML IVPB ×4 (01:36→19:41)
[2025-01-02] MEDS: MAGNESIUM IV 2 GM/50 ML PIGGYBACK IVPB (01:44)
--- NOTE | 2025-01-02 03:19 | PM.GSHP ---
History of Present Illness History of Present Illness Date Seen: 01/02/25 Chief complaint: abd pain, fever Narrative: Aidan Vang is a 39 year old male who presented to the emergency department with 3 days worsening abdominal pain. The pain has mainly been in his lower abdomen. He points to both the left and right side as the most significant area of discomfort. He does have associated nausea, vomited once before checking into the emergency department. He has had decreased appetite and poor p.o. intake over the last several days. Some diarrhea over the last 2 days. He has had low-grade fevers at home, but they have been steadily increasing. His temperature in the emergency department is 103.1. He did have pain similar to this several years ago, but it was not as severe. He came to the emergency department at that time. A CT scan was performed on chart review 06/2022 and within normal limits. No known history of Crohn's or ulcerative colitis. His mom does have rheumatoid arthritis and he has a family member with Crohn's. On chart review he does have elevated creatinine of 1.8. Previous BMP from 2022 demonstrated elevated creatinine of 1.6 and 1.4. He denies any known history of kidney disease. He does not see a doctor regularly. Review of Systems Status of ROS: Reports: 10 or more systems reviewed and unremarkable except as noted in History and below [facility] Social History Smoking Status: Never smoker Do you use any of these nicotine containing products: E-Cigarettes Second hand tobacco smoke exposure: No How often do you have a drink containing alcohol: never AUDIT-C Alcohol total score: 0 Non-prescribed substance use: denies use Meds Home Medications and Allergies Home Medications ?Medication ?Instructions ?Recorded ?Confirmed ?Type alprazolam 1 mg tablet mg 07/09/22 History citalopram 20 mg tablet mg 07/09/22 History Allergies Allergy/AdvReac Type Severity Reaction Status Date / Time No Known Drug Allergies Allergy Verified 07/09/22 13:50 Exam Narrative: Exam Narrative: General: Alert and oriented, pale and in discomfort. Nontoxic Respiratory: Equal breath rise bilaterally, maintained on room air CV: Well perfused Abdomen: Soft, tender to palpation lower quadrants with some guarding, rebound in the left lower quadrant and right lower quadrant. Const: Vital Signs, click to edit/add: Vital Signs - 24 hr 01/02/25 00:07 01/02/25 01:15 01/02/25 01:30 Temperature 103.1 F H Pulse Rate Pulse Rate [Left P ulse Oximeter] 93 95 Respiratory Rate 16 16 Blood Pressure Blood Pressure [Ri ght Upper Arm] 111/85 113/73 113/76 Pulse Oximetry 97 96 95 Oxygen Delivery Me thod Room Air Room Air Room Air 01/02/25 01:45 01/02/25 01:56 01/02/25 02:00 Temperature Pulse Rate 94 95 Pulse Rate [Left P ulse Oximeter] 95 Respiratory Rate 14 16 Blood Pressure Blood Pressure [Ri ght Upper Arm] 106/73 Pulse Oximetry 93 93 92 Oxygen Delivery Me thod 01/02/25 02:01 01/02/25 02:15 01/02/25 02:16 Temperature Pulse Rate 93 91 91 Pulse Rate [Left P ulse Oximeter] Respiratory Rate 19 16 16 Blood Pressure 102/68 102/68 Blood Pressure [Ri ght Upper Arm] Pulse Oximetry 93 92 94 Oxygen Delivery Me thod 01/02/25 02:30 01/02/25 02:32 01/02/25 02:45 Temperature Pulse Rate 90 Pulse Rate [Left P ulse Oximeter] Respiratory Rate 23 18 Blood Pressure 100/67 Blood Pressure [Ri ght Upper Arm] Pulse Oximetry 93 Oxygen Delivery Me thod 01/02/25 02:46 01/02/25 03:00 Temperature Pulse Rate 90 90 Pulse Rate [Left P ulse Oximeter] Respiratory Rate 19 Blood Pressure 95/64 Blood Pressure [Ri ght Upper Arm] Pulse Oximetry 94 91 Oxygen Delivery Me thod Results Results Labs: No leukocytosis, evidence of a left shift. Creatinine in 1.8. Low magnesium of 1.[address] scan report/results: report reviewed and image reviewed Progress Note:A&P Assessment and plan (1) Acute kidney injury: Status: Acute Assessment and Plan: Patient with elevated creatinine of 1.8 on admission. On chart review it has been elevated in the past (1.6 and 1.4). Certainly this could represent dehydration, although will continue to trend while he remains inpatient. (2) Enterocolitis: Status: Acute Assessment and Plan: Diffuse edema and bowel wall thickening of the colon and distal small bowel. Could represent a viral enterocolitis versus inflammation from perforation. He does have a history of abdominal pain for last several years. Family history of Crohn's disease in a distant relative. (3) Acute appendicitis: Status: Acute Assessment and Plan: Inflammation of the appendix with fecalith at the base and tip. Findings are suspicious for an acute perforated appendicitis versus inflammation associated with a severe enterocolitis. Given the presence of a fecalith, fluid in the pelvis and clinical exam findings recommend proceeding to the operating room for laparoscopic appendectomy. Patient is at higher risk for possible conversion to open and ileocecectomy. (4) Hypomagnesemia: Status: Acute Assessment and Plan: Magnesium low at 1.4. Will replace postoperatively. All other electrolytes within normal limits. Plan -patient to be taken emergently to the operating room for laparoscopic appendectomy -received Zosyn in the emergency department, will continue postoperatively -NPO, continue IV fluids -will replace magnesium -trend creatinine and urinary output while inpatient, no need for Randall
[2025-01-02 03:33] LABS: Appearance Urine Clear (Clear)
[2025-01-02 03:41] LABS: Cannabinoid Screen Urine Negative (Negative); Methamphetamines Screen Urine Negative (Negative); Tricyclic Antidepressant Urine Negative (Negative)
[2025-01-02] MEDS: BUPIVACAINE 0.5% 30 ML INJECTION (04:04)
[2025-01-02] MEDS: LACTATED RINGERS 1000 ML 1,000 ML 35 ML IV (04:40)
--- NOTE | 2025-01-02 04:58 | PM.GSPRC ---
Operative Note Date of procedure: 01/02/25 Pre-op diagnosis: Acute appendicitis, perforated Post-op diagnosis: Same, evidence of perforation and peritonitis Type of Procedure: Laparoscopic appendectomy Indications: Patient is a 39-year-old male who presented to the emergency department with clinical symptoms and workup suspicious for acute, perforated appendicitis. Risks and benefits of operative intervention were discussed at length with the patient. Risks included but was not limited to: Bleeding, infection, risk of damage to surrounding structures, possible need for additional procedures, possible need to convert to an open operation and postoperative complications such as pneumonia, pulmonary emboli or [place]. All questions and concerns were addressed with the patient agreeing to proceed. Procedure Description: After discussing the risks and benefits of the procedure, the patient signed informed consent.? The operative site was marked and the patient was brought to the operating room and placed on the operating table in supine position.? Care was taken to pad the patient's pressure points.?? The patient was then intubated by anesthesia.?? The operative site was then prepped and draped in the usual sterile fashion.? A time-out was then performed. Entrance to the abdomen was obtained via a 5 mm optical trocar in the left upper quadrant. The abdomen was insufflated and briefly surveyed for any signs of injury. There were none. A 12 mm port was placed lateral to the umbilicus as well as a 5 mm port in the left lower quadrant under direct vision. The abdomen had purulent fluid throughout with irritation to the anterior abdominal wall and all visible small bowel. The omentum was inflamed and adherent to the anterior abdominal wall. This was bluntly dissected free. The patient was then placed in Trendelenburg position with the right side up. The omentum was peeled away from the underlying small bowel. The small bowel was gently moved out of the way and the appendix was in view. There was evidence of necrosis to the base of the appendix, as well as some stool a perforation at the tip of the appendix. A large amount of dissection was necessary to free the appendix from the surrounding pelvic attachments. There was a very thick rind on the body of the appendix which was carefully dissected free from the anterior abdominal wall. The body of the appendix was then grasped and pulled into view. A mesenteric window was created between the base of the appendix and the mesoappendix. A 45 mm Endo-OMI vascular load stapler was then used to transect the mesoappendix. The staple line was inspected with no evidence of bleeding. The base of the appendix was further dissected circumferentially onto the cecum. There was an area of healthy tissue just below the area of necrosis. A 45 mm bowel load stapler was then used to transect the base of the appendix below the area of necrosis. The staple lines was inspected for bleeding. There was none with the tissue inflamed but healthy in appearance. The appendix was then removed from the abdomen using an Endo-Catch bag. The specimen was sent to pathology. A small amount of stool in the right lower quadrant was removed from the abdomen. The abdomen was thoroughly irrigated with 3 L warm saline. All ports were removed under direct visualization. The 12 mm port site fascia was closed with 0 Vicryl. The skin was then closed with absorbable subcuticular suture. Sterile dressings were then applied. Instrument sponge and needle counts were correct at the end of the case. The patient was then woken and transported to the PACU in stable condition. Findings: Perforated appendicitis, purulent peritonitis of the abdomen. Anesthesia: GETA Surgeon: Echo Guerrero MD Estimated blood loss (mL): 5 Specimen: Appendix Condition: stable Disposition: PACU
--- NOTE | 2025-01-02 05:00 | SUR.OPER ---
patient requested to keep ear rings in said he thinks they are not made of metal. patient aware of risks of metal in body during procedure. surgeon and utility sales representative aware.
--- NOTE | 2025-01-02 05:13 | P.ANES_ITS ---
Anesthesia Charges Start Date/Time Anesthesia Start Date: 01/02/25 Anesthesia Start Time: 03:26 Stop Date/Time Anesthesia Stop Date: 01/02/25 Anesthesia Stop Time: 05:10 Summary Emergency: REPAIR CLERK Coding CPT Codes CPT Codes: ANESTH SURG LOWER ABDOMEN - 61895 ([id number]) P2 - PATIENT W/MILD SYST DISEASE, QZ - REPAIR CLERK SVC W/O REAM CUTTER BY Additional Codes: Summary - Emergency: REPAIR CLERK ([id number])
--- NOTE | 2025-01-02 05:13 | W.ANESCHARGE ---
Anesthesia Charges Start Date/Time Anesthesia Start Date: 01/02/25 Anesthesia Start Time: 03:26 Stop Date/Time Anesthesia Stop Date: 01/02/25 Anesthesia Stop Time: 05:10 Summary Emergency: ASSEMBLER MECHANICAL ORDNANCE Coding CPT Codes CPT Codes: ANESTH SURG LOWER ABDOMEN - 26587 ([id number]) P2 - PATIENT W/MILD SYST DISEASE, QZ - ASSEMBLER MECHANICAL ORDNANCE SVC W/O BUILDING PRINCIPAL BY Additional Codes: Summary - Emergency: ASSEMBLER MECHANICAL ORDNANCE ([id number])
[2025-01-02] MEDS: PHENYLEPHRINE 100 MCG/ML SYRINGE IVP ×2 (05:18→05:25)
[2025-01-02] MEDS: LACTATED RINGERS 1000 ML 1,000 ML 100 ML IV ×2 (06:19→23:43)
[2025-01-02 07:13] LABS: TSH With Reflex to FT4* 1.100 uIU/mL (0.270-4.200)
[2025-01-02] MEDS: MAGNESIUM SULF 1 G/100 ML 1 GM/100 ML PIGGYBACK IVPB (08:51)
[2025-01-02] MEDS: CITALOPRAM HYDROBROMIDE 20 MG TABLET PO (09:26)
[2025-01-02] MEDS: FLUOXETINE HCL 10 MG CAPSULE PO (09:26)
[2025-01-02] MEDS: LACTATED RINGERS 1000 ML 1,000 ML 500 ML IV ×2 (09:27→17:03)
--- NOTE | 2025-01-02 15:43 | PM.IMCN1 ---
Date of Consult Patient: [facility] Patient Consult date: 01/02/25 Requesting Physician: General Surgery Primary Care Provider: Michael Rogers MD Consult Narrative Reason for consult: Chronic anxiety, agoraphobia, panic attacks, elevated Cr Narrative: Aidan Vang is a 39 year old male Review of Systems Status of ROS: Reports: 10 or more systems reviewed and unremarkable except as noted in History and below 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, persistent ?G47.24 - Circadian rhythm sleep disorder, free running type (ICD-10) Generalized anxiety disorder ?F41.1 - Generalized anxiety disorder (ICD-10) Elevated blood pressure reading without diagnosis of hypertension ?R03.0 - Elevated blood-pressure reading, without diagnosis of hypertension (ICD-10) Panic disorder with agoraphobia ?F40.01 - Agoraphobia with panic disorder (ICD-10) Controlled substance agreement signed ?Z79.899 - Other fpc (current) drug therapy (ICD-10) Surgical History (Updated 01/02/25 @ 15:59 by Marika Connor MD) S/P laparoscopic appendectomy (01/02/25) ?Z90.49 - Acquired absence of other specified parts of digestive tract (ICD-10) Social History (Updated 01/02/25 @ 15:53 by Marika Connor MD) Narrative: Unemployed. Vapes daily, low nicotine content; counseled to cut down/quit 01/02/25. Quit smokeless tobacco 2021. Denies alcohol or recreational drug use. Remote h/o recreational drug use per [facility] record: marijuana until 2015, psilocybin once in 2001, opioid last around 2005, amphetamines last in 2001, methamphetamines last in 2001, cocaine last around 2004 What is your current living situation?: I presently have a place to live Problems where you live: no known problems Problems where you live details: n/a In the past 12 months, utilities in danger of being shut off: no In past 12 months, lack of transportation kept you from medical appts, meetings, work, or getting things needed for daily living: no In the past 12 mos, have been you worried that your food would run out before you had money to buy more?: never true In the past 12 mos, the food you bought just didn't last and you didn't have money to buy more?: never true Smoking Status: Never smoker Do you use any of these nicotine containing products: E-Cigarettes Second hand tobacco smoke exposure: No How often do you have a drink containing alcohol: never AUDIT-C Alcohol total score: 0 Non-prescribed substance use: denies use How often does anyone, including family, friends and others, physically hurt you: never How often does anyone, including family, friends and others, insult or talk down to you: never How often does anyone, including family, friends and others, threaten you with harm: never How often does anyone, including family, friends and others, scream or curse at you: never service: No Meds Home Medications and Allergies Home Medications ?Medication ?Instructions ?Recorded ?Confirmed ?Type citalopram 20 mg tablet 20 mg PO DAILY 07/09/22 01/02/25 History clonazepam 0.5 mg tablet 0.75 mg PO DAILY 01/02/25 01/02/25 History clonazepam 1 mg tablet 1 mg PO QPM 01/02/25 01/02/25 History fluoxetine 10 mg capsule 10 mg PO DAILY 01/02/25 01/02/25 History propranolol 60 mg tablet 60 mg PO Q8H 01/02/25 01/02/25 History Allergies Allergy/AdvReac Type Severity Reaction Status Date / Time No Known Drug Allergies Allergy Verified 07/09/22 13:50 Exam Narrative: Exam Narrative: General: No acute distress. Awake alert oriented x3. HEENT: Normocephalic atraumatic, pupils equally round and reactive to light and accommodation. Oropharynx clear. Mucous membranes are moist. No cervical lymphadenopathy, thyromegaly or carotid bruits. No JVD. Cardiovascular: Regular rate and rhythm. No murmurs, gallops, or rubs. Chest: No increased work of breathing. Clear to auscultation bilaterally. No crackles or wheezes. Abdomen: Postsurgical abdomen with Steri-Strips over laparoscopic surgical wounds, hemostatic. Extremities: No edema, no cyanosis or clubbing. Skin: No jaundice, no pallor, no rashes on visible skin. Multiple tattoos over upper body. Const: Vital Signs, click to edit/add: Vital Signs - 24 hr 01/02/25 00:07 01/02/25 01:15 01/02/25 01:30 Temperature 103.1 F H Pulse Rate Pulse Rate [Left P ulse Oximeter] 93 95 Respiratory Rate 16 16 Blood Pressure Blood Pressure [Ri ght Upper Arm] 111/85 113/73 113/76 Pulse Oximetry 97 96 95 Oxygen Delivery Me thod Room Air Room Air Room Air 01/02/25 01:45 01/02/25 01:56 01/02/25 02:00 Temperature Pulse Rate 94 95 Pulse Rate [Left P ulse Oximeter] 95 Respiratory Rate 14 16 Blood Pressure Blood Pressure [Ri ght Upper Arm] 106/73 Pulse Oximetry 93 93 92 Oxygen Delivery Me thod 01/02/25 02:01 01/02/25 02:15 01/02/25 02:16 Temperature Pulse Rate 93 91 91 Pulse Rate [Left P ulse Oximeter] Respiratory Rate 19 16 16 Blood Pressure 102/68 102/68 Blood Pressure [Ri ght Upper Arm] Pulse Oximetry 93 92 94 Oxygen Delivery Me thod 01/02/25 02:30 01/02/25 02:32 01/02/25 02:45 Temperature Pulse Rate 90 Pulse Rate [Left P ulse Oximeter] Respiratory Rate 23 18 Blood Pressure 100/67 Blood Pressure [Ri ght Upper Arm] Pulse Oximetry 93 Oxygen Delivery Me thod 01/02/25 02:46 01/02/25 03:00 01/02/25 03:01 Temperature Pulse Rate 90 90 Pulse Rate [Left P ulse Oximeter] Respiratory Rate 19 Blood Pressure 95/64 97/66 Blood Pressure [Ri ght Upper Arm] Pulse Oximetry 94 91 93 Oxygen Delivery Me thod 01/02/25 03:17 01/02/25 05:05 01/02/25 05:10 Temperature 98.5 F Pulse Rate 83 81 Pulse Rate [Left P ulse Oximeter] Respiratory Rate 14 14 Blood Pressure 106/79 99/65 89/59 L Blood Pressure [Ri ght Upper Arm] Pulse Oximetry 94 93 Oxygen Delivery Me thod Room Air Room Air 01/02/25 05:15 01/02/25 05:20 01/02/25 05:25 Temperature Pulse Rate 84 82 84 Pulse Rate [Left P ulse Oximeter] Respiratory Rate 14 14 16 Blood Pressure 86/52 L 86/55 L 89/59 L Blood Pressure [Ri ght Upper Arm] Pulse Oximetry 94 94 95 Oxygen Delivery Me thod Room Air Room Air Room Air 01/02/25 05:30 01/02/25 05:35 01/02/25 05:45 Temperature 98.3 F 98.1 F Pulse Rate 83 86 88 Pulse Rate [Left P ulse Oximeter] Respiratory Rate 16 16 14 Blood Pressure 88/54 L 90/52 L 83/53 L Blood Pressure [Ri ght Upper Arm] Pulse Oximetry 96 96 96 Oxygen Delivery Me thod Room Air Room Air Room Air 01/02/25 06:05 01/02/25 06:11 01/02/25 06:20 Temperature 97.4 F L 97.7 F Pulse Rate 83 83 Pulse Rate [Left P ulse Oximeter] Respiratory Rate 14 16 14 Blood Pressure 83/51 L 83/51 L Blood Pressure [Ri ght Upper Arm] Pulse Oximetry 94 94 94 Oxygen Delivery Me od Room Air Room Air Room Air 01/02/25 06:35 01/02/25 06:50 01/02/25 07:00 Temperature 97.5 F L 97.7 F Pulse Rate 83 80 Pulse Rate [Left P ulse Oximeter] Respiratory Rate 16 16 16 Blood Pressure 84/53 L 87/53 L Blood Pressure [Ri ght Upper Arm] Pulse Oximetry 94 94 97 Oxygen Delivery Me thod Room Air Room Air Room Air 01/02/25 07:20 01/02/25 07:30 01/02/25 08:00 Temperature 97.6 F 97.6 F Pulse Rate 81 83 Pulse Rate [Left P ulse Oximeter] Respiratory Rate 16 18 16 Blood Pressure 89/58 L 87/57 L Blood Pressure [Ri ght Upper Arm] Pulse Oximetry 96 97 Oxygen Delivery Me thod Room Air Room Air 01/02/25 09:00 01/02/25 10:21 01/02/25 11:00 Temperature 98.1 F 97.0 F L 97.4 F L Pulse Rate 78 83 82 Pulse Rate [Left P ulse Oximeter] Respiratory Rate 16 18 16 Blood Pressure 92/61 91/60 86/56 L Blood Pressure [Ri ght Upper Arm] Pulse Oximetry 97 97 Oxygen Delivery Me thod Room Air Room Air Room Air 01/02/25 11:56 Temperature 96.9 F L Pulse Rate 79 Pulse Rate [Left P ulse Oximeter] Respiratory Rate 16 Blood Pressure 84/54 L Blood Pressure [Ri ght Upper Arm] Pulse Oximetry 98 Oxygen Delivery Me thod Room Air Labs Labs: Short CBC 01/02/25 Range/Units 00:35 WBC 7.10 (4.50-11.00) K/uL Hgb 15.0 (13.5-17.5) gm/dL Hct 46.6 (37.0-53.0) % Plt Count 204 (140-440) K/uL BMP 01/02/25 00:35 Sodium 135 Potassium 4.0 Chloride 97 Carbon Dioxide 32 BUN 20 Creatinine 1.8 H Glucose 99 Calcium 8.9 Cardiac Enzymes 01/02/25 Range/Units 00:35 Troponin I < 0.01 (0.01-0.04) ng/mL Liver Function 01/02/25 Range/Units 00:35 Total Bilirubin 1.5 (0.1-1.5) mg/dL Direct Bilirubin 0.1 (0.0-0.5) mg/dL AST 20 (12-35) U/L ALT 14 (4-50) U/L Alkaline Phosphatase 77 (40-150) U/L Albumin 4.3 (3.3-5.0) g/dL Urine 01/02/25 Range/Units 03:20 Urine Color Yellow (Yellow) Urine Appearance Clear (Clear) Urine pH 5.5 (5.0-8.5) Ur Specific [place] <= 1.005 (1.000-1.030) Urine Protein 1+ A (Negative) Urine Glucose (UA) Negative (Negative) Ordering Physician: Ehsan Daniels M.D. Date of Service: 01/02/25 Procedure(s): CT chest abdomen pelv w con Accession Number(s): [id number] cc: Ehasn Daniels M.D.; Michael Rogers M.D.~ For Patients: As a result of the 21st Century Cures Act, medical imaging exams and procedure reports are released immediately into your electronic medical record. You may view this report before your referring provider. If you have questions, please contact your health care provider. INDICATION: Fever TECHNIQUE: CT chest, abdomen and pelvis acquired with 79 milliliters Isovue 370 IV contrast. COMPARISON: July 09, 2022. FINDINGS: CHEST: Cardiovascular structures: Heart size is normal. Thoracic aorta and main pulmonary artery are normal in caliber. Mediastinum and douglas: No mass or adenopathy. Lungs and pleura: Lungs and pleural spaces are clear. No suspicious nodules, infiltrates, or effusions. Chest wall and axilla: No mass or adenopathy. Bones: No suspicious bone lesions. Unremarkable for age. ABDOMEN AND PELVIS: Liver: Unremarkable. Gallbladder and bile ducts: Unremarkable. Pancreas: Unremarkable. Spleen: Unremarkable. Adrenal glands: Unremarkable. Kidneys: Tiny cortical hypodensities, too small to characterize. No hydronephrosis.. GI tract: Diffuse small and large bowel circumferential wall thickening with perienteric edema. Moderately distended appendix with appendicolith about the base. No bowel obstruction. Vascular structures: Unremarkable. Lymph nodes: Multiple enlarged ileocolic lymph nodes, likely reactive. Miscellaneous: Small volume free fluid likely reactive. No free air. Pelvic Organs: Mildly distended bladder with circumferential wall thickening. Recommend correlation with urinalysis if UTI suspected.. Bones: No suspicious bone lesions. Unremarkable for age. IMPRESSION: 1. Moderately distended appendix with appendicolith suggestive of acute uncomplicated appendicitis. No drainable fluid collection. 2. Diffuse small and large bowel circumferential wall thickening with perienteric edema suggestive of acute enterocolitis, likely infectious/inflammatory in etiology. No bowel obstruction. 3. No acute intrathoracic abnormality. Please note that all CT scans at this facility use dose modulation, iterative reconstruction, and/or weight-based dosing when appropriate to reduce radiation dose to as low as reasonably achievable. Dictated by Frandy Henderson MD @ 01/02/2025 1:31:33 AM (Electronically Signed) Assessment and Plan Assessment and plan (1) S/P laparoscopic appendectomy: Problem comment: 01/02/25 Cesar - routine post op cares, on zosyn for purulent peritonitis - BPs low, MAPs slightly low. Patient and his family note this is chronic; he is asymptomatic. Some improvement with IVF bolus this morning. Repeat this afternoon for recurrent low BP. Status: Acute (2) Acute appendicitis: Problem comment: - now s/p lap appy, as above Status: Acute (3) Panic disorder with agoraphobia: Problem comment: Patient sees Julián Nunez MD at [facility]. Patient endorses he gets panic attacks sometimes. Continue home medications with hold parameters on propanolol. 01/02 I asked patient and family to think about and plan for how to deal with a panic attack that may arise in hospital to prevent the desire to leave AMA prior to completion of medical treatment. Patient and family demonstrated understanding and agreement. Status: Chronic (4) Generalized anxiety disorder: Status: Chronic (5) Chronic prescription benzodiazepine use: Problem comment: Continue home doses of clonazepam Status: Acute (6) Hypomagnesemia: Problem comment: Replace Mg IV, recheck in am. Status: Acute (7) Elevated creatine kinase: Problem comment: Possibly acute on chronic. I checked [facility] and Care Everywhere and do not find any previous Cr levels. Cr in our records: 07/09/22 Cr 1.4 BUN 12 02/09/23 Cr 1.6 BUN 18 01/02/25 Cr 1.8 BUN 20 Based on this pattern and BUN, this appears to be mostly or even entirely chronic. May be related to acute dehydration in setting of appendicitis on top of chronic hypotension/inadequate perfusion. Try to improve BP and potential dehydration with IVF and monitor. Would benefit from outpatient f/u and further w/u with PCP and referral to nephrology if elevated Cr persists. Status: Acute
--- NOTE | 2025-01-02 18:43 | PC.NURSE ---
End of Shift: Patient pleasant and cooperative, A&O. Patient has been slightly hypotensive this shift, MD aware. All other VSS. Dressing to abdomen C/D/I. Denies nausea. Patient reports pain in his abdomen but declined PRN medication. Independent in room. ?
[2025-01-02] MEDS: PROPRANOLOL 20 MG TABLET 60 MG PO (20:56)
[2025-01-02] MEDS: HYDROCODONE-ACETAMIN 5-325 MG 1 TAB PO (22:30)
[2025-01-03] MEDS: PIPERACILLIN/TAZOBACTAM 3.375 GM in 0.9 % SODIUM CHLORIDE Mini-bag 100 ML IVPB ×4 (01:59→19:49)
[2025-01-03 02:00] VITALS: BP 101/61; PULSE 82; RESP 16; TEMP 37.1; O2SAT 98
--- NOTE | 2025-01-03 04:03 | PC.NURSE ---
Updated Dr. Christiane GARG on Postive Blood Cultures, Gram Negative Rods in Anaerobic bottle. Dr. Grande states Zosyn as prescribed is appropriate and no changes needed at this time.
[2025-01-03 06:19] LABS: Hematocrit 35.7 % (37.0-53.0); Hemoglobin* 11.7 gm/dL (13.5-17.5); Immature Granulocytes Pct Auto 0.4 %; Mean Corpuscular HGB Conc 33 gm/dL (32-36); Mean Corpuscular Hemoglobin 28 pg (26-34); Mean Corpuscular Volume 86 fL (80-100); RDW Coefficient of Variation % 13.0 % (11.5-15.5); Red Blood Count 4.14 m/uL (4.30-5.90); White Blood Count* 11.58 K/uL (4.50-11.00)
[2025-01-03 06:28] LABS: Immature Granulocytes Abs Auto 0.00 K/uL (0.00-0.30); Lymphocytes Absolute Auto 0.90 K/uL (0.90-2.90)
[2025-01-03 06:29] LABS: Slide Review Reflex No
[2025-01-03 06:34] LABS: Albumin* 2.6 g/dL (3.3-5.0); Chloride* 105 mmol/L (96-114); Potassium* 4.4 mmol/L (3.6-5.1); Sodium* 136 mmol/L (135-149)
[2025-01-03 06:36] LABS: Blood Urea Nitrogen* 24 mg/dL (5-24); Creatinine* 1.8 mg/dL (0.5-1.5); Estimated Glomerular Filt Rate 49 ml/min
[2025-01-03 06:37] LABS: Alanine Aminotransferase* 10 U/L (4-50); Alkaline Phosphatase* 43 U/L (40-150); Anion Gap 3 mEq/L (7-15); Aspartate Amino Transferase* 15 U/L (12-35); Bilirubin Direct* 0.2 mg/dL (0.0-0.5); Bilirubin Total* 0.7 mg/dL (0.1-1.5); Calcium* 8.3 mg/dL (8.4-10.6); Carbon Dioxide* 28 mmol/L (20-32); Glucose* 94 mg/dL (60-115); Total Protein* 4.8 g/dL (6.0-8.3)
--- NOTE | 2025-01-03 06:41 | PC.NURSE ---
Pt is alert and oriented x3. Afebrile. Pt reports 3-5/10 pain in abdomen, pain managed with?PRN medication. Pt has 3 lap sites with steri strips CDI.?Pt is up ad rose, voiding, passing gas, and tolerating a regular diet.?Pt had x3 BM overnight. ?
[2025-01-03 06:54] LABS: Est. Creatinine Clearance* 59.41
[2025-01-03 07:00] VITALS: BP 113/80; PULSE 81; RESP 16; TEMP 37.2; O2SAT 98
[2025-01-03] MEDS: PROPRANOLOL 20 MG TABLET 60 MG PO ×2 (08:42→21:05)
[2025-01-03] MEDS: FLUOXETINE HCL 10 MG CAPSULE PO (08:42)
[2025-01-03] MEDS: CITALOPRAM HYDROBROMIDE 20 MG TABLET PO (08:43)
--- NOTE | 2025-01-03 10:12 | PM.GSPN ---
Subjective Subjective Date Seen: 01/03/25 Interval history: Patient is doing well this morning. Denies any significant anxiety while being in the hospital. He does have pain at his incision sites, but overall his abdominal pain has significantly improved. He feels better than he did when he 1st presented. He has been tolerating clear liquids. He does feel like he gets full quickly. Denies any nausea. He has passed gas and had several bowel movements, diarrhea. No fevers overnight. Exam Narrative: Exam Narrative: General: Alert and oriented, no acute distress Abdomen: Soft, appropriately tender over incisions without guarding or rebound. Steri-Strips in place clean/dry/intact Const: Vital Signs, click to edit/add: Vital Signs - 24 hr 01/02/25 10:21 01/02/25 11:00 01/02/25 11:56 Temperature 97.0 F L 97.4 F L 96.9 F L Pulse Rate 83 82 79 Pulse Rate [Pulse Oximeter] Respiratory Rate 18 16 16 Blood Pressure 91/60 86/56 L 84/54 L Blood Pressure [Le ft Arm] Pulse Oximetry 97 97 98 Oxygen Delivery [facility] Room Air Room Air Room Air 01/02/25 15:00 01/02/25 15:00 01/02/25 17:18 Temperature 98.3 F Pulse Rate Pulse Rate [Pulse Oximeter] 76 76 Respiratory Rate 18 18 18 Blood Pressure Blood Pressure [Le ft Arm] 91/63 Pulse Oximetry 97 97 Oxygen Delivery [facility] Room Air Room Air 01/02/25 19:30 01/02/25 20:45 01/02/25 22:41 Temperature 98.8 F Pulse Rate Pulse Rate [Pulse Oximeter] 83 87 Respiratory Rate 16 16 16 Blood Pressure Blood Pressure [Le ft Arm] 105/70 108/69 Pulse Oximetry 99 98 98 Oxygen Delivery [facility] Room Air Room Air Room Air 01/02/25 22:41 01/03/25 02:00 01/03/25 07:00 Temperature 98.6 F 98.8 F Pulse Rate Pulse Rate [Pulse Oximeter] 81 82 81 Respiratory Rate 16 16 16 Blood Pressure Blood Pressure [Le ft Arm] 95/62 101/61 Pulse Oximetry 98 98 Oxygen Delivery [facility] Room Air Room Air 01/03/25 07:00 01/03/25 07:00 Temperature 99.0 F Pulse Rate Pulse Rate [Pulse Oximeter] 81 Respiratory Rate 16 16 Blood Pressure Blood Pressure [Le ft Arm] 113/80 Pulse Oximetry 98 98 Oxygen Delivery Me thod Room Air Room Air Labs/Imaging Labs Labs: WBC 11.5, creatinine remains elevated at 1.8. Imaging Imaging: No new imaging Progress Note:A&P Assessment and plan (1) S/P laparoscopic appendectomy: Status: Acute Assessment and Plan: Patient is postop day 1 laparoscopic appendectomy for perforated appendicitis and purulent peritonitis. Fever curve has improved with no fevers overnight. His white blood cell count did trend up (7--11.5). His creatinine remains elevated at 1.8, which could be a chronic condition for the patient. Vital signs were stable overnight. His postoperative hypotension has improved with fluid boluses. Patient is now tolerating clear fluids without difficulty. -will continue with clear liquids at this time, patient was encouraged to drink water. High risk for postoperative ileus given his purulent peritonitis intraoperatively -DC IV fluids -IV and p.o. pain meds as needed -continue home dose clonazepam, per pain wall p.r.n. with hold parameters -continue IV Zosyn, this should adequately cover his peritonitis and blood culture which was positive for Gram-negative rods -trend fever and WBC curves -encourage ambulation, SCDs for DVT prophylaxis
[2025-01-03 11:00] VITALS: BP 109/74; PULSE 79; RESP 16; TEMP 37; O2SAT 100
--- NOTE | 2025-01-03 11:01 | P.IMPN_ITS ---
Assessment and Plan Assessment and plan (1) S/P laparoscopic appendectomy: Problem comment: 01/02/25 Cesar - routine post op cares, on zosyn for purulent peritonitis - BPs improved after IVF boluses yesterday. Continuing clear liquid diet today. I spoke with Dr. Guerrero regarding this patient's care. Status: Acute (2) Acute appendicitis: Problem comment: - now s/p lap appy, as above Status: Resolved (3) Gram-negative bacteremia: Problem comment: - 1/2 BC. Suspect abdominal source (appendicitis with peritonitis) - Do not need to repeat BC for clearance. - Continue Zosyn. Status: Acute (4) Panic disorder with agoraphobia: Problem comment: Patient sees Julián Nunez MD at [facility]. Patient endorses he gets panic attacks sometimes. Continue home medications with hold parameters on propanolol. 01/02 I asked patient and family to think about and plan for how to deal with a panic attack that may arise in hospital to prevent the desire to leave AMA prior to completion of medical treatment. Patient and family demonstrated understanding and agreement. 01/03 doing well. Stable symptoms. No panic attacks here so far. Status: Chronic (5) Generalized anxiety disorder: Status: Chronic (6) Chronic prescription benzodiazepine use: Problem comment: Continue home doses of clonazepam Status: Acute (7) Hypomagnesemia: Problem comment: 01/03 Mg 2.2, resolved Status: Acute (8) Elevated serum creatinine: Problem comment: Possibly acute on chronic. I checked EPIC and Care Everywhere and do not find any previous Cr levels. Cr in our records: 07/09/22 Cr 1.4 BUN 12 02/09/23 Cr 1.6 BUN 18 01/02/25 Cr 1.8 BUN 20 Based on this pattern and BUN, this appears to be mostly or even entirely chronic. May be related to acute dehydration in setting of appendicitis on top of chronic hypotension/inadequate perfusion. Try to improve BP and potential dehydration with IVF and monitor. Would benefit from outpatient f/u and further w/u with PCP and referral to nephrology if elevated Cr persists. 01/03 Cr stable at 1.8 despite IVF yesterday and BP improvement. Suspect this is a chronic elevation and will need f/u as an outpatient with nephrology for further investigation and testing. Status: Acute (9) Nicotine dependence due to vaping non-tobacco product: Problem comment: Patient using OTC nicotine pouches prn cravings Status: Acute Subjective Time Seen by Provider: 08:02 Date Seen: 01/03/25 Interval history: Aidan is feeling well. He has had 4 BMs overnight. He notes some abdominal pain if trying to twist or rise out of bed. He denies nausea, CP, SOB. He notes his anxiety is well-controlled. Exam Narrative: Exam Narrative: General: No acute distress. Awake alert oriented x3. Cardiovascular: Regular rate and rhythm. No murmurs, gallops, or rubs. Chest: No increased work of breathing. Clear to auscultation bilaterally. No crackles or wheezes. Abdomen: Postsurgical abdomen with Steri-Strips over laparoscopic surgical wounds are c/d/i. Extremities: No edema, no cyanosis or clubbing. Const: Vital Signs, click to edit/add: Vital Signs - 24 hr 01/02/25 11:56 01/02/25 15:00 01/02/25 15:00 Temperature 96.9 F L 98.3 F Pulse Rate 79 Pulse Rate [Pulse Oximeter] 76 Respiratory Rate 16 18 18 Blood Pressure 84/54 L Blood Pressure [Le ft Arm] 91/63 Pulse Oximetry 98 97 97 Oxygen Delivery Me thod Room Air Room Air Room Air 01/02/25 17:18 01/02/25 19:30 01/02/25 20:45 Temperature 98.8 F Pulse Rate Pulse Rate [Pulse Oximeter] 76 83 87 Respiratory Rate 18 16 16 Blood Pressure Blood Pressure [Le ft Arm] 105/70 108/69 Pulse Oximetry 99 98 Oxygen Delivery Wi thod Room Air Room Air 01/02/25 22:41 01/02/25 22:41 01/03/25 02:00 Temperature 98.6 F 98.8 F Pulse Rate Pulse Rate [Pulse Oximeter] 81 82 Respiratory Rate 16 16 16 Blood Pressure Blood Pressure [Le ft Arm] 95/62 101/61 Pulse Oximetry 98 98 98 Oxygen Delivery Wi thod Room Air Room Air Room Air 01/03/25 07:00 01/03/25 07:00 01/03/25 07:00 Temperature 99.0 F Pulse Rate Pulse Rate [Pulse Oximeter] 81 81 Respiratory Rate 16 16 16 Blood Pressure Blood Pressure [Le ft Arm] 113/80 Pulse Oximetry 98 98 Oxygen Delivery Wi thod Room Air Room Air Labs Labs: Laboratory Results - last 24 hr 01/03/25 06:10 WBC 11.58 H RBC 4.14 L Hgb 11.7 L Hct 35.7 L MCV 86 MCH 28 MCHC 33 RDW Coeff of Anirudh 13.0 Plt Count 157 Neut % (Auto) 83.5 H Lymph % (Auto) 7.5 L Morrill % (Auto) 8.5 Eos % (Auto) 0.0 Baso % (Auto) 0.1 Neut # (Auto) 9.70 H Lymph # (Auto) 0.90 Morrill # (Auto) 1.00 H Eos # (Auto) 0.00 Baso # (Auto) 0.00 Abs Immat Gran (auto) 0.00 Imm/Tot Granulo (auto) 0.4 Sodium 136 Potassium 4.4 Chloride 105 Carbon Dioxide 28 Anion Gap 3 L BUN 24 Creatinine 1.8 H Estimated Creat Clear 59.41 Estimated GFR 49 Glucose 94 Calcium 8.3 L Magnesium 2.2 Total Bilirubin 0.7 Direct Bilirubin 0.2 AST 15 ALT 10 Alkaline Phosphatase 43 Total Protein 4.8 L Albumin 2.6 L
[2025-01-03 15:00] VITALS: BP 117/78; PULSE 79; PULSE 83; RESP 16; TEMP 37.2; O2SAT 100; O2SAT 98
[2025-01-03 19:00] VITALS: BP 118/81; PULSE 81; RESP 16; TEMP 37.3; O2SAT 99
[2025-01-03] MEDS: HYDROCODONE-ACETAMIN 5-325 MG 1 TAB PO (22:28)
[2025-01-03 23:00] VITALS: BP 116/74; PULSE 90; RESP 16; TEMP 37.2; O2SAT 99
[2025-01-04] VITALS (9 sets, daily range): BP systolic 106–120; BP diastolic 61–85; PULSE 72–91; RESP 16–18; TEMP 36.9–38.1; O2SAT 96–98
[2025-01-04] MEDS: PIPERACILLIN/TAZOBACTAM 3.375 GM in 0.9 % SODIUM CHLORIDE Mini-bag 100 ML IVPB ×4 (01:58→20:39)
--- NOTE | 2025-01-04 06:28 | PC.NURSE ---
End of shift report [id number]: VSS. Afebrile. Rated abdomen pain a 4-0/10, prn pain med offered and given with relief. Abdomen incision sites are C/D/I. Pt is tolerating a clear diet. Pt denies nausea. Pt is independent in room, call light within reach.?
--- NOTE | 2025-01-04 08:01 | P.IMPN_ITS ---
Assessment and Plan Assessment and plan (1) S/P laparoscopic appendectomy: Problem comment: 01/02/25 Cesar - routine post op cares, on zosyn for purulent peritonitis, Gneg bacteremia - BP stable. Tolerating clears. Status: Acute (2) Acute appendicitis: Problem comment: - now s/p lap appy, as above Status: Resolved (3) Gram-negative bacteremia: Problem comment: - 1/2 BC. Suspect abdominal source (appendicitis with peritonitis) - Do not need to repeat BC for clearance. - Await final results of BCs. Continue Zosyn. Status: Acute (4) Panic disorder with agoraphobia: Problem comment: Patient sees Julián Nunez MD at [facility]. Patient endorses he gets panic attacks sometimes. Continue home medications with hold parameters on propanolol. 01/02 I asked patient and family to think about and plan for how to deal with a panic attack that may arise in hospital to prevent the desire to leave AMA prior to completion of medical treatment. Patient and family demonstrated understanding and agreement. 01/03 doing well. Stable symptoms. No panic attacks here so far. 01/04 doing well. Status: Chronic (5) Generalized anxiety disorder: Status: Chronic (6) Chronic prescription benzodiazepine use: Problem comment: Continue home doses of clonazepam Status: Acute (7) Hypomagnesemia: Problem comment: 01/03 Mg 2.2, resolved Status: Acute (8) Elevated serum creatinine: Problem comment: Possibly acute on chronic. I checked EPIC and Care Everywhere and do not find any previous Cr levels. Cr in our records: 07/09/22 Cr 1.4 BUN 12 02/09/23 Cr 1.6 BUN 18 01/02/25 Cr 1.8 BUN 20 Based on this pattern and BUN, this appears to be mostly or even entirely chronic. May be related to acute dehydration in setting of appendicitis on top of chronic hypotension/inadequate perfusion. Try to improve BP and potential dehydration with IVF and monitor. Would benefit from outpatient f/u and further w/u with PCP and referral to nephrology if elevated Cr persists. 01/03 Cr stable at 1.8 despite IVF yesterday and BP improvement. Suspect this is a chronic elevation and will need f/u as an outpatient with nephrology for further investigation and testing. Status: Acute (9) Nicotine dependence due to vaping non-tobacco product: Problem comment: Patient using OTC nicotine pouches prn cravings Status: Acute Subjective Time Seen by Provider: 07:37 Date Seen: 01/04/25 Interval history: Aidan is doing well this morning. He states his abdomen feels flatter and less painful. Clears are going well. Exam Narrative: Exam Narrative: General: No acute distress. Awake alert oriented. Cardiovascular: Regular rate and rhythm. No murmurs, gallops, or rubs. Chest: No increased work of breathing. Clear to auscultation bilaterally. No crackles or wheezes. Abdomen: Less distended. Bowel sounds present. Steristrips and incisions are c/d/i, no erythema or induration. Extremities: No edema, no cyanosis or clubbing. Const: Vital Signs, click to edit/add: Vital Signs - 24 hr 01/03/25 11:00 01/03/25 15:00 01/03/25 15:00 Temperature 98.6 F Pulse Rate [Pulse Oximeter] 79 79 Respiratory Rate 16 16 16 Blood Pressure [Le ft Arm] 109/74 Pulse Oximetry 100 100 Oxygen Delivery Me thod Room Air Room Air 01/03/25 15:00 01/03/25 19:00 01/03/25 23:00 Temperature 98.9 F 99.1 F 98.9 F Pulse Rate [Pulse Oximeter] 83 81 90 Respiratory Rate 16 16 16 Blood Pressure [Le ft Arm] 117/78 118/81 116/74 Pulse Oximetry 98 99 99 Oxygen Delivery Me thod Room Air Room Air Room Air 01/03/25 23:00 01/03/25 23:00 01/04/25 02:00 Temperature 98.4 F Pulse Rate [Pulse Oximeter] 90 81 Respiratory Rate 16 16 16 Blood Pressure [Le ft Arm] 106/65 Pulse Oximetry 99 98 Oxygen Delivery Me thod Room Air Room Air
[2025-01-04 08:03] LABS: Hematocrit 36.4 % (37.0-53.0); Hemoglobin* 11.7 gm/dL (13.5-17.5); Immature Granulocytes Pct Auto 0.6 %; Mean Corpuscular HGB Conc 32 gm/dL (32-36); Mean Corpuscular Hemoglobin 28 pg (26-34); Mean Corpuscular Volume 86 fL (80-100); RDW Coefficient of Variation % 13.1 % (11.5-15.5); Red Blood Count 4.23 m/uL (4.30-5.90); White Blood Count* 13.43 K/uL (4.50-11.00)
[2025-01-04 08:04] LABS: Immature Granulocytes Abs Auto 0.10 K/uL (0.00-0.30); Lymphocytes Absolute Auto 0.80 K/uL (0.90-2.90); Slide Review Reflex No
[2025-01-04 08:17] LABS: Chloride* 105 mmol/L (96-114); Potassium* 4.0 mmol/L (3.6-5.1); Sodium* 137 mmol/L (135-149)
[2025-01-04 08:20] LABS: Anion Gap 5 mEq/L (7-15); Blood Urea Nitrogen* 22 mg/dL (5-24); Calcium* 8.9 mg/dL (8.4-10.6); Carbon Dioxide* 27 mmol/L (20-32); Creatinine* 1.7 mg/dL (0.5-1.5); Est. Creatinine Clearance* 61.52; Estimated Glomerular Filt Rate 52 ml/min; Glucose* 93 mg/dL (60-115)
[2025-01-04] MEDS: FLUOXETINE HCL 10 MG CAPSULE PO (08:40)
[2025-01-04] MEDS: CITALOPRAM HYDROBROMIDE 20 MG TABLET PO (08:40)
[2025-01-04] MEDS: HYDROCODONE-ACETAMIN 5-325 MG 1 TAB PO (08:41)
[2025-01-04] MEDS: PROPRANOLOL 20 MG TABLET 60 MG PO ×2 (08:41→21:42)
--- NOTE | 2025-01-04 10:27 | P.GSPN_ITS ---
Subjective Subjective Date Seen: 01/04/25 Interval history: Patient is doing well. Tolerating clear liquids. Continues to pass gas. Significant improvement in abdominal pain. Some mild bloating this morning after eating, but otherwise feeling good. No fevers. Ambulating the halls wi thout difficulty. No concerns. Exam Narrative: Exam Narrative: Abdomen: Nondistended. Bowel sounds present. Steristrips and incisions are c/d/i, no erythema or induration. Const: Vital Signs, click to edit/add: Vital Signs - 24 hr 01/03/25 11:00 01/03/25 15:00 01/03/25 15:00 Temperature 98.6 F Pulse Rate [Pulse Oximeter] 79 79 Respiratory Rate 16 16 16 Blood Pressure [Le ft Arm] 109/74 Pulse Oximetry 100 100 Oxygen Delivery Me thod Room Air Room Air 01/03/25 15:00 01/03/25 19:00 01/03/25 23:00 Temperature 98.9 F 99.1 F 98.9 F Pulse Rate [Pulse Oximeter] 83 81 90 Respiratory Rate 16 16 16 Blood Pressure [Le ft Arm] 117/78 118/81 116/74 Pulse Oximetry 98 99 99 Oxygen Delivery Me thod Room Air Room Air Room Air 01/03/25 23:00 01/03/25 23:00 01/04/25 02:00 Temperature 98.4 F Pulse Rate [Pulse Oximeter] 90 81 Respiratory Rate 16 16 16 Blood Pressure [Le ft Arm] 106/65 Pulse Oximetry 99 98 Oxygen Delivery Sc thod Room Air Room Air 01/04/25 07:00 01/04/25 07:00 Temperature 98.4 F Pulse Rate [Pulse Oximeter] 72 Respiratory Rate 18 18 Blood Pressure [Le ft Arm] 113/82 Pulse Oximetry 98 98 Oxygen Delivery Me thod Room Air Room Air Labs/Imaging Labs Labs: Mild leukocytosis (13). Creatinine is stable at 1.7 Imaging Imaging: No new imaging Progress Note:A&P Assessment and plan (1) S/P laparoscopic appendectomy: Status: Acute Assessment and Plan: Patient is postop day 2 laparoscopic appendectomy for perforated appendicitis and purulent peritonitis. Fever curve has improved with no fevers overnight. His white blood cell continues to trend up (7--11.5-- 13). Creatinine is stable at 1.7, likely chronic. Vital signs stable overnight, afebrile. Clinically patient continues to improve. -advance diet as tolerated -IV and p.o. pain meds as needed -continue home dose clonazepam, per pain wall p.r.n. with hold parameters -continue IV Zosyn -trend fever and WBC curves -encourage ambulation, SCDs for DVT prophylaxis
--- NOTE | 2025-01-04 15:23 | PC.NURSE ---
End of Shift Note: Patient has had an uneventful day. Have tried to enc him to get up and ambulate around the nursing unit. So far he has only been up and about in his room. Pain has been controlled with oral pain medications. Report given to Ashlyn Calix RN.
--- NOTE | 2025-01-04 18:55 | PC.NURSE ---
Pt a/o and able to verbalize his needs. Moves independently throughout his room. Ate approx. 25% of a regular diet dinner tray without difficulty. Pt does report several loose stools throughout the day, MD updated. IS to 2500 and pt encouraged to increase ambulation. Family at bedside and pt appears to be comfortably visiting with them. Temp= 100, pt does state he feels hot but believes it is due to eating his meal tray. He declined Tylenol at this time.
[2025-01-04] MEDS: ACETAMINOPHEN 325 MG TABLET 650 MG PO (22:10)
[2025-01-05] VITALS (9 sets, daily range): BP systolic 99–132; BP diastolic 60–85; PULSE 75–91; RESP 16–20; TEMP 36.9–38.2; O2SAT 96–98
[2025-01-05] MEDS: PIPERACILLIN/TAZOBACTAM 3.375 GM in 0.9 % SODIUM CHLORIDE Mini-bag 100 ML IVPB ×4 (02:14→21:02)
[2025-01-05 06:26] LABS: Hematocrit 35.0 % (37.0-53.0); Hemoglobin* 11.3 gm/dL (13.5-17.5); Mean Corpuscular HGB Conc 32 gm/dL (32-36); Mean Corpuscular Hemoglobin 28 pg (26-34); Mean Corpuscular Volume 85 fL (80-100); Red Blood Count 4.10 m/uL (4.30-5.90); White Blood Count* 13.02 K/uL (4.50-11.00)
[2025-01-05 06:27] LABS: Slide Review Reflex No
[2025-01-05 06:37] LABS: Chloride* 105 mmol/L (96-114)
[2025-01-05 06:38] LABS: Potassium* 4.1 mmol/L (3.6-5.1); Sodium* 136 mmol/L (135-149)
[2025-01-05 06:40] LABS: Blood Urea Nitrogen* 18 mg/dL (5-24); Creatinine* 1.6 mg/dL (0.5-1.5); Est. Creatinine Clearance* 65.37; Estimated Glomerular Filt Rate 56 ml/min
[2025-01-05 06:41] LABS: Anion Gap 3 mEq/L (7-15); Calcium* 8.8 mg/dL (8.4-10.6); Carbon Dioxide* 28 mmol/L (20-32); Glucose* 90 mg/dL (60-115)
--- NOTE | 2025-01-05 07:04 | PC.NURSE ---
Shift note ([id number]): Patient pleasant, alert and oriented. Ambulated independently in room and with family in hallway. PRN Tylenol given for fever of 100.6. Patient reported feeling fine at that time and has denied feeling ill or having pain throughout shift. Recheck temp 98.5. No drainage to lap sites. Steri-strips intact.?
[2025-01-05] MEDS: PROPRANOLOL 20 MG TABLET 60 MG PO ×2 (09:20→21:08)
[2025-01-05] MEDS: CITALOPRAM HYDROBROMIDE 20 MG TABLET PO (09:20)
[2025-01-05] MEDS: FLUOXETINE HCL 10 MG CAPSULE PO (09:20)
--- NOTE | 2025-01-05 10:02 | P.IMPN_ITS ---
Assessment and Plan Assessment and plan (1) S/P laparoscopic appendectomy: Problem comment: 01/02/25 Cesar gloria - routine post op cares, on zosyn for purulent peritonitis, Gneg bacteremia, awaiting culture results - BP stable. Tolerating regular diet, pain improving, ambulating frequently. Mildly febrile last night - no new symptoms with that. Monitor in hospital today yet, awaiting BC results, continue zosyn. Status: Acute (2) Acute appendicitis: Problem comment: - now s/p lap appy, as above Status: Resolved (3) Gram-negative bacteremia: Problem comment: - 2/ BC. Suspect abdominal source (appendicitis with peritonitis) - Do not need to repeat BC for clearance. - Await final results of BCs. Continue Zosyn. Status: Acute (4) Panic disorder with agoraphobia: Problem comment: Patient sees Julián Nunez MD at [facility]. Patient endorses he gets panic attacks sometimes. Continue home medications with hold parameters on propanolol. 01/02 I asked patient and family to think about and plan for how to deal with a panic attack that may arise in hospital to prevent the desire to leave AMA prior to completion of medical treatment. Patient and family demonstrated understanding and agreement. 01/03 doing well. Stable symptoms. No panic attacks here so far. 01/04 doing well. 01/05 doing well, no anxiety attacks. Status: Chronic (5) Generalized anxiety disorder: Status: Chronic (6) Chronic prescription benzodiazepine use: Problem comment: Continue home doses of clonazepam Status: Chronic (7) Hypomagnesemia: Problem comment: 01/03 Mg 2.2, resolved Status: Resolved (8) Elevated serum creatinine: Problem comment: Possibly acute on chronic. I checked [facility] and Care Everywhere and do not find any previous Cr levels. Cr in our records: 07/09/22 Cr 1.4 BUN 12 02/09/23 Cr 1.6 BUN 18 01/02/25 Cr 1.8 BUN 20 Based on this pattern and BUN, this appears to be mostly or even entirely chronic. May be related to acute dehydration in setting of appendicitis on top of chronic hypotension/inadequate perfusion. Try to improve BP and potential dehydration with IVF and monitor. Would benefit from outpatient f/u and further w/u with PCP and referral to nephrology if elevated Cr persists. 01/03 Cr stable at 1.8 despite IVF yesterday and BP improvement. Suspect this is a chronic elevation and will need f/u as an outpatient with nephrology for further investigation and testing. 01/05 Cr improving, 1.6 today. IVF stopped. Referral to nephrology as outpatient. Status: Acute (9) Nicotine dependence due to vaping non-tobacco product: Problem comment: Patient using OTC nicotine pouches prn cravings Status: Acute Subjective Time Seen by Provider: 08:50 Date Seen: 01/05/25 Interval history: Aidan is feeling better every day. He tells me he had a large meal yesterday evening, which included roast beef, mashed potatoes and gravy, and a large salad. He said that after eating all that salad, he isn't hungry even this morning, but he is also not nauseous. It is getting easier for him to sit up and he is having less abdominal pain. He walked the halls without difficulty a few times yesterday. I note that he had an elevated temperature overnight, but he tells me he did not feel poorly with that or feverish. I spoke to the lab over the phone this morning and the g negatives are growing out in the anaerobic bottles only, so these are being sent out for further culture. Exam Narrative: Exam Narrative: General: No acute distress. Awake alert oriented. Cardiovascular: Regular rate and rhythm. No murmurs, gallops, or rubs. Chest: No increased work of breathing. Clear to auscultation bilaterally. No crackles or wheezes. Abdomen: Less distended. Bowel sounds present. Steristrips and incisions are c/d/i, no erythema or induration. Extremities: No edema, no cyanosis or clubbing. Const: Vital Signs, click to edit/add: Vital Signs - 24 hr 01/04/25 11:00 01/04/25 15:00 01/04/25 15:00 Temperature 99.2 F Pulse Rate [Pulse Oximeter] 80 88 Respiratory Rate 18 18 18 Blood Pressure [Le ft Arm] 115/80 Pulse Oximetry 97 Oxygen Delivery Me thod Room Air Room Air 01/04/25 15:00 01/04/25 20:23 01/04/25 22:05 Temperature 100 F H 100.1 F H 100.6 F H Pulse Rate [Pulse Oximeter] 88 91 89 Respiratory Rate 18 16 18 Blood Pressure [Le ft Arm] 120/85 119/84 108/61 Pulse Oximetry 97 98 96 Oxygen Delivery Me thod Room Air Room Air Room Air 01/04/25 22:10 01/04/25 22:25 01/04/25 23:17 Temperature 100.6 F H 99.1 F Pulse Rate [Pulse Oximeter] Respiratory Rate 18 Blood Pressure [Le ft Arm] Pulse Oximetry 96 Oxygen Delivery Pr thod Room Air 01/05/25 02:13 01/05/25 02:21 01/05/25 08:13 Temperature 98.5 F 98.5 F 99.1 F Pulse Rate [Pulse Oximeter] 75 82 Respiratory Rate 16 16 Blood Pressure [Le ft Arm] 102/70 132/85 Pulse Oximetry 98 97 Oxygen Delivery Pr thod Room Air Room Air 01/05/25 08:13 Temperature Pulse Rate [Pulse Oximeter] Respiratory Rate 16 Blood Pressure [Le ft Arm] Pulse Oximetry 97 Oxygen Delivery Pr thod Room Air Labs Labs: Laboratory Results - last 24 hr 01/05/25 06:07 WBC 13.02 H RBC 4.10 L Hgb 11.3 L Hct 35.0 L MCV 85 MCH 28 MCHC 32 Plt Count 208 Sodium 136 Potassium 4.1 Chloride 105 Carbon Dioxide 28 Anion Gap 3 L BUN 18 Creatinine 1.6 H Estimated Creat Clear 65.37 Estimated GFR 56 Glucose 90 Calcium 8.8
[2025-01-05] MEDS: ACETAMINOPHEN 325 MG TABLET 650 MG PO (15:58)
[2025-01-05] MEDS: VANCOMYCIN 2 GM/400 ML 2 GM/400 ML PIGGYBACK IVPB (17:09)
--- NOTE | 2025-01-05 18:53 | PC.NURSE ---
End of shift note (15:00 to 19:00) Patient was very pleasant and cooperative throughout care. He complained of chills and temperature was 100.7 F. Physician was notified and ordered new blood cultures x 2. New order of Vancomycin was started. Tylenol was administered and temperature was rechecked at 18:50 showing a 98.7 reading. Patient had not eaten breakfast or lunch, reporting that he felt too full after the previous day dinner, but was able to eat 100% of today's dinner. He reports feeling no nausea. New order for probiotics was placed by physician. Abdominal sounds are normoactive in all quadrants. Incisions look intact and without any sign of infection. Patient reports no pain at incision points or abdominal.
[2025-01-05] MEDS: LACTOBACILLUS ACIDOPHILUS 1 TABLET 1 TAB PO (21:10)
[2025-01-06 02:28] VITALS: BP 111/68; PULSE 79; RESP 17; TEMP 37.3; O2SAT 97
[2025-01-06] MEDS: PIPERACILLIN/TAZOBACTAM 3.375 GM in 0.9 % SODIUM CHLORIDE Mini-bag 100 ML IVPB ×3 (02:33→14:47)
[2025-01-06] MEDS: VANCOMYCIN 1 GM/200 ML 1 GM/200 ML PIGGYBACK IVPB (06:00)
--- NOTE | 2025-01-06 08:09 | PC.NURSE ---
Shift note ([id number]): Patient pleasant, alert and oriented. Ambulated independently in room. Afebrile. Reported some abdominal discomfort when sitting up. Denies pain at rest.?
[2025-01-06 08:12] VITALS: BP 116/78; PULSE 81; RESP 16; TEMP 36.9; O2SAT 98
[2025-01-06] MEDS: LACTOBACILLUS ACIDOPHILUS 1 TABLET 1 TAB PO ×2 (08:15→13:09)
[2025-01-06 08:19] LABS: Hematocrit 36.6 % (37.0-53.0); Hemoglobin* 11.8 gm/dL (13.5-17.5); Immature Granulocytes Pct Auto 1.8 %; Mean Corpuscular HGB Conc 32 gm/dL (32-36); Mean Corpuscular Hemoglobin 28 pg (26-34); Mean Corpuscular Volume 86 fL (80-100); RDW Coefficient of Variation % 13.2 % (11.5-15.5); Red Blood Count 4.26 m/uL (4.30-5.90); White Blood Count* 15.33 K/uL (4.50-11.00)
[2025-01-06 08:32] LABS: Immature Granulocytes Abs Auto 0.30 K/uL (0.00-0.30); Lymphocytes Absolute Auto 1.60 K/uL (0.90-2.90); Slide Review Reflex Yes
[2025-01-06 08:40] LABS: Chloride* 106 mmol/L (96-114); Potassium* 4.0 mmol/L (3.6-5.1); Sodium* 138 mmol/L (135-149)
[2025-01-06 08:42] LABS: Slide Review Acceptable Review (Acceptable)
[2025-01-06 08:43] LABS: Anion Gap 6 mEq/L (7-15); Blood Urea Nitrogen* 15 mg/dL (5-24); Calcium* 8.8 mg/dL (8.4-10.6); Carbon Dioxide* 26 mmol/L (20-32); Creatinine* 1.6 mg/dL (0.5-1.5); Est. Creatinine Clearance* 62.99; Estimated Glomerular Filt Rate 56 ml/min; Glucose* 89 mg/dL (60-115)
--- NOTE | 2025-01-06 08:55 | CRLHL7_ITS ---
For Patients: As a result of the Century Cures Act, medical imaging exams and procedure reports are released immediately into your electronic medical record. You may view this report before your referring provider. If you have questions, please contact your health care provider. INDICATION: Elevated labs, possible abscess post appendectomy. TECHNIQUE: Axial images were obtained from the diaphragm to the pubic symphysis. Reformats were obtained in the coronal and sagittal plane. IV Contrast: 78 cc Isovue 370 Oral Contrast: None COMPARISON: Abdomen and pelvis CT 01/02/2025 FINDINGS: Lower chest: Trace bilateral pleural effusions with 4 millimeter noncalcified pulmonary nodule in the left lower lobe. This is stable compared to the study of 4 days prior. Liver: Unremarkable. Normal in size and attenuation. No masses. Gallbladder and bile ducts: Contracted gallbladder without discrete abnormality. Spleen: Unremarkable. Normal in size without mass. Pancreas: Unremarkable. No mass or inflammation. Adrenal glands: Unremarkable. No nodules. Kidneys: Mild bilateral renal cortical thinning with no evidence of hydronephrosis. Subcentimeter hypodensities which are too small for characterization although likely renal cysts. Vasculature: Unremarkable. GI tract: Pneumoperitoneum consistent with the recent appendectomy. Trace free fluid with wall thickening of the ascending colon, sigmoid colon. Mild wall thickening of small-bowel loops within the right lower quadrant. Status post interval appendectomy. Associated fat stranding within the mesentery. Rim enhancing fluid collection within the right lower quadrant measuring up to 4.1 x 3.8 centimeters in largest diameter. Interloop abscess superior to the bladder measuring 2.9 x 2.0 centimeters. 5.7 x 3.2 centimeter abscess anterior to the rectum. Smaller subcentimeter fluid collections are noted in the mesentery as well as superior to the anterior aspect of the bladder. Pelvis: Mild bladder wall thickening, possibly due to incomplete distention. Bones: Unremarkable for age. IMPRESSION: 1. Status post interval appendectomy with multiple lower abdominal and pelvic abscesses, largest measuring 5.7 x 3.2 centimeters anterior to the rectum and the right lower quadrant measuring 4.1 x 3.8 centimeters. Interloop abscess superior to the bladder measuring 2.9 x 2.0 centimeters. Several other interloop subcentimeter abscesses are also noted. 2. Trace bilateral pleural effusions. Please note that all CT scans at this facility use dose modulation, iterative reconstruction, and/or weight-based dosing when appropriate to reduce radiation dose to as low as reasonably achievable. Dictated by Luis Miguel Allen MD @ 01/06/2025 12:58:02 PM (Electronically Signed)
[2025-01-06] MEDS: PROPRANOLOL 20 MG TABLET 60 MG PO (09:08)
[2025-01-06] MEDS: FLUOXETINE HCL 10 MG CAPSULE PO (09:08)
[2025-01-06] MEDS: CITALOPRAM HYDROBROMIDE 20 MG TABLET PO (09:08)
--- NOTE | 2025-01-06 09:11 | PM.GSPN ---
Subjective Subjective Date Seen: 01/06/25 Interval history: Patient is doing well. Denies any significant abdominal pain, but does feel a soreness of the muscles with getting out of bed. Had a fever yesterday evening. Eating a regular diet, continues to pass gas and have bowel movements. Exam Narrative: Exam Narrative: Abd: soft, tender over incision sites, non distended. No tenderness on right side or above pubic bone. Const: Vital Signs, click to edit/add: Vital Signs - 24 hr 01/05/25 12:46 01/05/25 15:00 01/05/25 15:00 Temperature 99.5 F 100.7 F H Pulse Rate [Pulse Oximeter] 85 91 Respiratory Rate 16 20 20 Blood Pressure [Le ft Arm] 113/78 Blood Pressure [Ri ght Arm] 111/75 Pulse Oximetry 97 96 Oxygen Delivery Me thod Room Air Room Air 01/05/25 15:00 01/05/25 15:58 01/05/25 17:18 Temperature 100.7 F H 100.5 F H Pulse Rate [Pulse Oximeter] Respiratory Rate Blood Pressure [Le ft Arm] Blood Pressure [Ri ght Arm] Pulse Oximetry 96 Oxygen Delivery Me thod Room Air 01/05/25 20:11 01/05/25 23:00 01/05/25 23:00 Temperature 99.4 F 98.9 F Pulse Rate [Pulse Oximeter] 83 78 Respiratory Rate 17 18 18 Blood Pressure [Le ft Arm] 99/60 106/67 Blood Pressure [Ri ght Arm] Pulse Oximetry 97 98 98 Oxygen Delivery Me thod Room Air Room Air Room Air 01/06/25 02:28 01/06/25 08:12 Temperature 99.2 F 98.5 F Pulse Rate [Pulse Oximeter] 79 81 Respiratory Rate 17 16 Blood Pressure [Le ft Arm] 111/68 116/78 Blood Pressure [Ri ght Arm] Pulse Oximetry 97 98 Oxygen Delivery Me thod Room Air Room Air Labs/Imaging Labs Labs: WBC (15), creatinine stable at 1.6. Progress Note:A&P Assessment and plan (1) S/P laparoscopic appendectomy: Status: Acute Assessment and Plan: Patient is postop day 3 laparoscopic appendectomy for perforated appendicitis and purulent peritonitis. Tmax 100.7 yesterday. Antibiotic coverage broadened to include Vancomycin. WBC trending up to 15 this morning. Concern for possible developing abscess so CT scan ordered and pending this morning. -regular diet, if evidence of fluid collection/abscess will make NPO for possible transfer and drain placement. -IV and p.o. pain meds as needed -continue home dose clonazepam, per pain wall p.r.n. with hold parameters -IV Zosyn and Vancomycin -trend fever and WBC curves -encourage ambulation, SCDs for DVT prophylaxis
[2025-01-06 10:27] LABS: C.Difficile Negative (Negative); CDIFFEPI 027 PRESUMPTIVE NEGATIVE (Negative)
--- NOTE | 2025-01-06 12:29 | P.IMPN_ITS ---
Assessment and Plan Assessment and plan (1) S/P laparoscopic appendectomy: Problem comment: 01/02/25 Cesar gloria - routine post op cares, on zosyn for purulent peritonitis, Gneg bacteremia, awaiting culture results - BP stable. Tolerating regular diet. Febrile again overnight. BCx2 drawn at onset of fever yesterday. Vancomycin added. WBC up to 15 this morning. Discussed with Cesar. STAT CT abd/pelvis pending. Status: Acute (2) Acute appendicitis: Problem comment: - now s/p lap appy, as above Status: Resolved (3) Gram-negative bacteremia: Problem comment: - 2/ BC. Suspect abdominal source (appendicitis with peritonitis) - Await final results of BCs. Continue Zosyn. Status: Acute (4) Panic disorder with agoraphobia: Problem comment: Patient sees Julián Nunez MD at [facility]. Patient endorses he gets panic attacks sometimes. Continue home medications with hold parameters on propanolol. 01/02 I asked patient and family to think about and plan for how to deal with a panic attack that may arise in hospital to prevent the desire to leave AMA prior to completion of medical treatment. Patient and family demonstrated understanding and agreement. 01/03 doing well. Stable symptoms. No panic attacks here so far. 01/04 doing well. 01/05 doing well, no anxiety attacks. 01/06 continues to do well. Status: Chronic (5) Generalized anxiety disorder: Status: Chronic (6) Chronic prescription benzodiazepine use: Problem comment: Continue home doses of clonazepam Status: Chronic (7) Hypomagnesemia: Problem comment: 01/03 Mg 2.2, resolved Status: Resolved (8) Elevated serum creatinine: Problem comment: Possibly acute on chronic. I checked [facility] and Care Everywhere and do not find any previous Cr levels. Cr in our records: 07/09/22 Cr 1.4 BUN 12 02/09/23 Cr 1.6 BUN 18 01/02/25 Cr 1.8 BUN 20 Based on this pattern and BUN, this appears to be mostly or even entirely chroni c. May be related to acute dehydration in setting of appendicitis on top of chronic hypotension/inadequate perfusion. Try to improve BP and potential dehydration with IVF and monitor. Would benefit from outpatient f/u and further w/u with PCP and referral to nephrology if elevated Cr persists. 01/03 Cr stable at 1.8 despite IVF yesterday and BP improvement. Suspect this is a chronic elevation and will need f/u as an outpatient with nephrology for further investigation and testing. 01/05 Cr improving, 1.6 today. IVF stopped. Referral to nephrology as outpatient. 01/06 Cr stable at 1.6. Getting IV contrast today for CT abd/pelvis. Recheck Cr in am. Status: Acute (9) Nicotine dependence due to vaping non-tobacco product: Problem comment: Patient using OTC nicotine pouches prn cravings Status: Acute Subjective Time Seen by Provider: 09: Date Seen: 01/06/25 Interval history: Eating well. Pain with getting out of bed, otherwise okay. Patient's mother is in the room with him. Questions answered. Exam Narrative: Exam Narrative: General: No acute distress. Awake alert oriented. Cardiovascular: Regular rate and rhythm. No murmurs, gallops, or rubs. Chest: No increased work of breathing. Clear to auscultation bilaterally. No crackles or wheezes. Abdomen: Bowel sounds present. Mild tenderness on right abdomen and over incisions. Steristrips and incisions are c/d/i, no erythema or induration. Extremities: No edema, no cyanosis or clubbing. Const: Vital Signs, click to edit/add: Vital Signs - 24 hr 01/05/25 12:46 01/05/25 15:00 01/05/25 15:00 Temperature 99.5 F 100.7 F H Pulse Rate [Pulse Oximeter] 85 91 Respiratory Rate 16 20 20 Blood Pressure [Le ft Arm] 113/78 Blood Pressure [Ri ght Arm] 111/75 Pulse Oximetry 97 96 Oxygen Delivery Me thod Room Air Room Air 01/05/25 15:00 01/05/25 15:58 01/05/25 17:18 Temperature 100.7 F H 100.5 F H Pulse Rate [Pulse Oximeter] Respiratory Rate Blood Pressure [Le ft Arm] Blood Pressure [Ri ght Arm] Pulse Oximetry 96 Oxygen Delivery Me thod Room Air 01/05/25 20:11 01/05/25 23:00 01/05/25 23:00 Temperature 99.4 F 98.9 F Pulse Rate [Pulse Oximeter] 83 78 Respiratory Rate 17 18 18 Blood Pressure [Le ft Arm] 99/60 106/67 Blood Pressure [Ri ght Arm] Pulse Oximetry 97 98 98 Oxygen Delivery Me thod Room Air Room Air Room Air 01/06/25 02:28 01/06/25 08:12 01/06/25 08:12 Temperature 99.2 F 98.5 F Pulse Rate [Pulse Oximeter] 79 81 Respiratory Rate 17 16 16 Blood Pressure [Le ft Arm] 111/68 116/78 Blood Pressure [Ri ght Arm] Pulse Oximetry 97 98 98 Oxygen Delivery Me thod Room Air Room Air Room Air Labs Labs: Laboratory Results - last 24 hr 01/06/25 01/06/25 08:10 09:07 WBC 15.33 H RBC 4.26 L Hgb 11.8 L Hct 36.6 L MCV 86 MCH 28 MCHC 32 RDW Coeff of Anirudh 13.2 Plt Count 237 Neut % (Auto) 71.2 Lymph % (Auto) 10.3 L [place] % (Auto) 12.5 H Eos % (Auto) 4.0 Baso % (Auto) 0.2 Neut # (Auto) 10.90 H Lymph # (Auto) 1.60 [place] # (Auto) 1.90 H Eos # (Auto) 0.60 H Baso # (Auto) 0.00 Abs Immat Gran (auto) 0.30 Imm/Tot Granulo (auto) 1.8 Diff Slide Review Acceptable Review Sodium 138 Potassium 4.0 Chloride 106 Carbon Dioxide 26 Anion Gap 6 L BUN 15 Creatinine 1.6 H Estimated Creat Clear 62.99 Estimated GFR 56 Glucose 89 Calcium 8.8 Stl C. diff Tox B Gene Negative Stl C. diff 027-NAP1-BI PRESUMPTIVE NEGATIVE
[2025-01-06 13:07] VITALS: BP 113/80; PULSE 77; RESP 16; TEMP 37; O2SAT 100
--- NOTE | 2025-01-06 13:56 | PM.EN ---
Chart Event Note Chart Event Note: CT scan reviewed. Patient is postop day 4 laparoscopic appendectomy with evidence of perforation and purulent peritonitis. Due to his persistent fevers and leukocytosis imaging was obtained. Multiple fluid collections concerning for early abscess formation. Recommend evaluation by IR and likely drainage. This was discussed at length with the patient and his mom. The hospitalist is currently working towards transfer for the patient.
--- NOTE | 2025-01-06 14:00 | PM.GSPN ---
Subjective Subjective Date Seen: 01/05/25 Interval history: Patient is doing well. Was able to walk the halls multiple times. Is wondering if he can advance his diet. Is passing gas and had a small BM this morning. No other concerns. Exam Narrative: Exam Narrative: Abd: soft, tender over incision sites, non distended. Incisions c/d/i Const: Vital Signs, click to edit/add: Vital Signs - 24 hr 01/05/25 15:00 01/05/25 15:00 01/05/25 15:00 Temperature 100.7 F H Pulse Rate [Pulse Oximeter] 91 Respiratory Rate 20 20 Blood Pressure [Le ft Arm] Blood Pressure [Ri ght Arm] 111/75 Pulse Oximetry 96 96 Oxygen Delivery Me thod Room Air Room Air 01/05/25 15:58 01/05/25 17:18 01/05/25 20:11 Temperature 100.7 F H 100.5 F H 99.4 F Pulse Rate [Pulse Oximeter] 83 Respiratory Rate 17 Blood Pressure [Le ft Arm] 99/60 Blood Pressure [Ri ght Arm] Pulse Oximetry 97 Oxygen Delivery Me thod Room Air 01/05/25 23:00 01/05/25 23:00 01/06/25 02:28 Temperature 98.9 F 99.2 F Pulse Rate [Pulse Oximeter] 78 79 Respiratory Rate 18 18 17 Blood Pressure [Le ft Arm] 106/67 111/68 Blood Pressure [Ri ght Arm] Pulse Oximetry 98 98 97 Oxygen Delivery Me thod Room Air Room Air Room Air 01/06/25 08:12 01/06/25 08:12 01/06/25 13:07 Temperature 98.5 F 98.6 F Pulse Rate [Pulse Oximeter] 81 77 Respiratory Rate 16 16 16 Blood Pressure [Le ft Arm] 116/78 Blood Pressure [Ri ght Arm] 113/80 Pulse Oximetry 98 98 100 Oxygen Delivery Me thod Room Air Room Air Room Air Labs/Imaging Labs Labs: WBC 13 Progress Note:A&P Assessment and plan (1) S/P laparoscopic appendectomy: Status: Acute Assessment and Plan: Patient is postop day 3 laparoscopic appendectomy for perforated appendicitis and purulent peritonitis. WBC is stable at 13. Low-grade fevers continue, vital signs otherwise stable. Has had return of bowel function. Okay to advance diet as tolerated. Both blood cultures now positive for Gram-negative rods. Will continue with IV Zosyn at this time. -advance diet as tolerated -IV and p.o. pain meds as needed -continue home dose clonazepam, per pain wall p.r.n. with hold parameters -IV Zosyn -trend fever and WBC curves -encourage ambulation, SCDs for DVT prophylaxis
--- NOTE | 2025-01-06 14:49 | P.DS_ITS ---
DS: Providers Provider Time Seen by Provider: 09:30 Date Seen: 01/06/25 Date of admission: 01/02/25 06:06 Primary care physician: Michael Rogers MD Admitting Clinician: Echo Guerrero MD Attending Physician on discharge: Echo Guerrero MD Date of Discharge: 01/06/25 DS: Diagnosis Discharge Diagnosis (1) S/P laparoscopic appendectomy: Status: Acute Problem details: 01/02/25 Cesar gloria - routine post op cares, on zosyn for purulent peritonitis, Gneg bacteremia, awaiting culture results - BP stable. Tolerating regular diet. Febrile again overnight. BCx2 drawn at onset of fever yesterday. Vancomycin added. WBC up to 15 this morning. Discussed with Cesar. STAT CT abd/pelvis shows abscesses. (2) Abdominal abscess: Status: Acute Problem details: Transfer for IR drainage, not available here. (3) Acute appendicitis: Status: Resolved Problem details: - now s/p lap appy, as above (4) Gram-negative bacteremia: Status: Acute Problem details: - 2/2 BC. Suspect abdominal source (appendicitis with peritonitis) - Await final results of BCs. Continue Zosyn. (5) Panic disorder with agoraphobia: Status: Chronic Problem details: Patient sees Julián Nunez MD at [facility]. Patient endorses he gets panic attacks sometimes. Continue home medications with hold parameters on propanolol. 01/02 I asked patient and family to think about and plan for how to deal with a panic attack that may arise in hospital to prevent the desire to leave AMA prior to completion of medical treatment. Patient and family demonstrated understanding and agreement. 01/03 doing well. Stable symptoms. No panic attacks here so far. 01/04 doing well. 01/05 doing well, no anxiety attacks. 01/06 continues to do well. (6) Generalized anxiety disorder: Status: Chronic (7) Chronic prescription benzodiazepine use: Status: Chronic Problem details: Continue home doses of clonazepam (8) Hypomagnesemia: Status: Resolved Problem details: 01/03 Mg 2.2, resolved (9) Nicotine dependence due to vaping non-tobacco product: Status: Acute Problem details: Patient using OTC nicotine pouches prn cravings (10) Elevated serum creatinine: Status: Acute Problem details: Possibly acute on chronic. I checked [facility] and Care Everywhere and do not find any previous Cr levels. Cr in our records: 07/09/22 Cr 1.4 BUN 12 02/09/23 Cr 1.6 BUN 18 01/02/25 Cr 1.8 BUN 20 Based on this pattern and BUN, this appears to be mostly or even entirely chronic. May be related to acute dehydration in setting of appendicitis on top of chronic hypotension/inadequate perfusion. Try to improve BP and potential dehydration with IVF and monitor. Would benefit from outpatient f/u and further w/u with PCP and referral to nephrology if elevated Cr persists. 01/03 Cr stable at 1.8 despite IVF yesterday and BP improvement. Suspect this is a chronic elevation and will need f/u as an outpatient with nephrology for further investigation and testing. 01/05 Cr improving, 1.6 today. IVF stopped. Referral to nephrology as outpatient. 01/06 Cr stable at 1.6. Getting IV contrast today for CT abd/pelvis. Recheck Cr in am. DS: Summary Hospital Course Hospital Course: 39 year old male with history of agoraphobia and anxiety disorder who underwent laparoscopic appendectomy by Dr. Guerrero on 01/02/25. Time Spent with Patient Time attestation: Total time spent providing and/or coordinating discharge services: Today I spent 60 minutes seeing the patient, answering the patient and his mother's questions, discussing the case with Dr. Guerrero, speaking with the call center, interventional radiologist and hospitalist from [place], reviewing [facility] and [facility] notes/diagnostics/labs, discussing the care plan with our care team that includes social work, PT/OT, pharmacy, RT, long term and documenting my impressions and plan in the medical record. Exam Const: Vital Signs, click to edit/add: Vital Signs - 24 hr 01/05/25 15:00 01/05/25 15:00 01/05/25 15:00 Temperature 100.7 F H Pulse Rate [Pulse Oximeter] 91 Respiratory Rate 20 20 Blood Pressure [Le ft Arm] Blood Pressure [Ri ght Arm] 111/75 Pulse Oximetry 96 96 Oxygen Delivery Me thod Room Air Room Air 01/05/25 15:58 01/05/25 17:18 01/05/25 20:11 Temperature 100.7 F H 100.5 F H 99.4 F Pulse Rate [Pulse Oximeter] 83 Respiratory Rate 17 Blood Pressure [Le ft Arm] 99/60 Blood Pressure [Ri ght Arm] Pulse Oximetry 97 Oxygen Delivery Me thod Room Air 01/05/25 23:00 01/05/25 23:00 01/06/25 02:28 Temperature 98.9 F 99.2 F Pulse Rate [Pulse Oximeter] 78 79 Respiratory Rate 18 18 17 Blood Pressure [Le ft Arm] 106/67 111/68 Blood Pressure [Ri ght Arm] Pulse Oximetry 98 98 97 Oxygen Delivery Me thod Room Air Room Air Room Air 01/06/25 08:12 01/06/25 08:12 01/06/25 13:07 Temperature 98.5 F 98.6 F Pulse Rate [Pulse Oximeter] 81 77 Respiratory Rate 16 16 16 Blood Pressure [Le ft Arm] 116/78 Blood Pressure [Ri ght Arm] 113/80 Pulse Oximetry 98 98 100 Oxygen Delivery Me thod Room Air Room Air Room Air DS: Data Data Completed and Pending Labs on day of discharge: Labs from last 24 hours 01/06/25 01/06/25 09:07 08:10 WBC 15.33 H RBC 4.26 L Hgb 11.8 L Hct 36.6 L MCV 86 MCH 28 MCHC 32 RDW Coeff of Anirudh 13.2 Plt Count 237 Neut % (Auto) 71.2 Lymph % (Auto) 10.3 L [place] % (Auto) 12.5 H Eos % (Auto) 4.0 Baso % (Auto) 0.2 Neut # (Auto) 10.90 H Lymph # (Auto) 1.60 [place] # (Auto) 1.90 H Eos # (Auto) 0.60 H Baso # (Auto) 0.00 Abs Immat Gran (auto) 0.30 Imm/Tot Granulo (auto) 1.8 Diff Slide Review Acceptable Review Sodium 138 Potassium 4.0 Chloride 106 Carbon Dioxide 26 Anion Gap 6 L BUN 15 Creatinine 1.6 H Estimated Creat Clear 62.99 Estimated GFR 56 Glucose 89 Calcium 8.8 Stl C. diff Tox B Gene Negative Stl C. diff 027-NAP1-BI PRESUMPTIVE NEGATIVE Preliminary micro results at discharge 01/02/25 00:35 Blood Culture - Preliminary Blood Gram negative lisa 01/02/25 00:46 Blood Culture - Preliminary Blood Gram negative lisa Discharge Plan Discharge Date of Admission: 01/02/25 06:06 Attending Physician on Admission: Echo Guerrero Primary Care Provider: Michael Rogers Discharge Medications: No Action citalopram 20 mg tablet 20 mg PO DAILY Patient Comments: TAKE ONE TABLET BY MOUTH ONE TIME DAILY clonazepam 0.5 mg tablet 0.75 mg PO DAILY clonazepam 1 mg tablet 1 mg PO QPM propranolol 60 mg tablet 60 mg PO Q8H fluoxetine 10 mg capsule 10 mg PO DAILY Patient Comments: Will increase to 20mg at the end of December 2024 Additional Instructions: Nephrology 1 month for elevated creatinine Follow Up Appointments: Kenneth Cárdenas MD [Staff Physician, Family Practice] - 01/11/25 12:35 pm Referral Note: [facility] for hospital follow-up. Provider,Not a Local [Non-Staff, Family Practice] Hospital Course: 39 year old male with history of agoraphobia and anxiety disorder who underwent laparoscopic appendectomy by Dr. Guerrero on 01/02/25.
[2025-01-06 15:00] VITALS: BP 111/75; PULSE 98; RESP 14; TEMP 37.1; O2SAT 98
--- NOTE | 2025-01-06 15:15 | PM.DST ---
Transfer Discharge Sum: Prov Provider Time Seen by Provider: 08:50 Date Seen: 01/06/25 Date of admission: 01/02/25 06:06 Primary care physician: Michael Rogers MD Attending physician on discharge: Marika Connor Anticipated date of transfer: 01/06/25 Receiving physician/facility: , Dr. Taylor DS: Diagnosis Discharge Diagnosis (1) S/P laparoscopic appendectomy: Status: Acute Problem details: 01/02/25 Cesar gloria - routine post op cares, on zosyn for purulent peritonitis, Gneg bacteremia, awaiting culture results - BP stable. Tolerating regular diet. Febrile again overnight. BCx2 drawn at onset of fever yesterday. Vancomycin added. WBC up to 15 this morning. Discussed with Cesar. STAT CT abd/pelvis shows abscesses. (2) Acute appendicitis: Status: Resolved Problem details: - now s/p lap appy, as above (3) Abdominal abscess: Status: Acute Problem details: Transfer for IR drainage, not available here. (4) Gram-negative bacteremia: Status: Acute Problem details: - 2/2 BC. Suspect abdominal source (appendicitis with peritonitis) - Await final results of BCs. Continue Zosyn. (5) Panic disorder with agoraphobia: Status: Chronic Problem details: Patient sees Julián Nunez MD at [facility]. Patient endorses he gets panic attacks sometimes. Continue home medications with hold parameters on propanolol. 01/02 I asked patient and family to think about and plan for how to deal with a panic attack that may arise in hospital to prevent the desire to leave AMA prior to completion of medical treatment. Patient and family demonstrated understanding and agreement. 01/03 doing well. Stable symptoms. No panic attacks here so far. 01/04 doing well. 01/05 doing well, no anxiety attacks. 01/06 continues to do well. (6) Generalized anxiety disorder: Status: Chronic (7) Chronic prescription benzodiazepine use: Status: Chronic Problem details: Continue home doses of clonazepam (8) Hypomagnesemia: Status: Resolved Problem details: 01/03 Mg 2.2, resolved (9) Elevated serum creatinine: Status: Acute Problem details: Possibly acute on chronic. I checked EPIC and Care Everywhere and do not find any previous Cr levels. Cr in our records: 07/09/22 Cr 1.4 BUN 12 02/09/23 Cr 1.6 BUN 18 01/02/25 Cr 1.8 BUN 20 Based on this pattern and BUN, this appears to be mostly or even entirely chronic. May be related to acute dehydration in setting of appendicitis on top of chronic hypotension/inadequate perfusion. Try to improve BP and potential dehydration with IVF and monitor. Would benefit from outpatient f/u and further w/u with PCP and referral to nephrology if elevated Cr persists. 01/03 Cr stable at 1.8 despite IVF yesterday and BP improvement. Suspect this is a chronic elevation and will need f/u as an outpatient with nephrology for further investigation and testing. 01/05 Cr improving, 1.6 today. IVF stopped. Referral to nephrology as outpatient. 01/06 Cr stable at 1.6. Getting IV contrast today for CT abd/pelvis. Recheck Cr in am. (10) Nicotine dependence due to vaping non-tobacco product: Status: Acute Problem details: Patient using OTC nicotine pouches prn cravings Transfer Discharge Sum: Med Medications Active and Home Medications: Home Medications citalopram 20 mg tablet 20 mg PO DAILY 07/09/22 [History Confirmed 01/02/25] clonazepam 0.5 mg tablet 0.75 mg PO DAILY 01/02/25 [History Confirmed 01/02/25] clonazepam 1 mg tablet 1 mg PO QPM 01/02/25 [History Confirmed 01/02/25] fluoxetine 10 mg capsule 10 mg PO DAILY 01/02/25 [History Confirmed 01/02/25] propranolol 60 mg tablet 60 mg PO Q8H 01/02/25 [History Confirmed 01/02/25] Active Medications Acetaminophen (Acetaminophen 325 Mg Tablet) 650 mg PO Q6H PRN PRN Reason: As needed for fever, headache, or minor pain Last Admin: 01/05/25 15:58 Dose: 650 mg Hydrocodone Bitart/Acetaminophen (Hydrocodone-Acetamin 5-325 Mg 1 Tab) 1 - 2 tab PO Q4H PRN PRN Reason: Pain Last Admin: 01/04/25 08:41 Dose: 1 tab Citalopram Hydrobromide (Citalopram Hydrobromide 20 Mg Tablet) 20 mg PO DAILY VIET Last Admin: 01/06/25 09:08 Dose: 20 mg Clonazepam (Clonazepam 0.5 Mg Tablet) 0.75 mg PO DAILY VIET Last Admin: 01/06/25 09:08 Dose: 0.75 mg Clonazepam (Clonazepam 0.5 Mg Tablet) 1 mg PO HS COUNT INCLUDES THE [facility] Last Admin: 01/05/25 21:11 Dose: 1 mg Diphenhydramine HCl (Diphenhydramine 50 Mg/Ml Inj) 25 - 50 mg IVP Q6H PRN PRN Reason: Itching Fluoxetine HCl (Fluoxetine Hcl 10 Mg Capsule) 10 mg PO DAILY COUNT INCLUDES THE [facility] Last Admin: 01/06/25 09:08 Dose: 10 mg Hydromorphone HCl (Hydromorphone 0.5 Mg/0.5 Ml Inj) 0.1 - 0.5 mg IVP Q2H PRN PRN Reason: Severe Pain Piperacillin Sod/Tazobactam (Sod 3.375 gm/ Sodium Chloride) 100 mls @ 100 mls/hr IVPB Q6H COUNT INCLUDES THE [facility] Last Admin: 01/06/25 14:47 Dose: 100 mls/hr Vancomycin/PEG/NADA/Lysine/Water (Vancomycin 1 Gm/200 Ml) 1 gm in 200 mls @ 200 mls/hr IVPB Q12H COUNT INCLUDES THE [facility] Last Admin: 01/06/25 06:00 Dose: 200 mls/hr IV Miscellaneous Supplies (Pharmacist Consult) 1 each MC Q24H COUNT INCLUDES THE [facility]; Protocol Lactobacillus Acidophilus (Lactobacillus Acidophilus 1 Tablet) 1 tab PO TIDWM COUNT INCLUDES THE [facility] Last Admin: 01/06/25 13:09 Dose: 1 tab Lorazepam (Lorazepam 2 Mg/Ml Inj) 0.5 mg IVP Q12H PRN Nicotine Polacrilex (Nicotine 2 Mg Gum) 2 mg BUCCAL Q1H PRN PRN Reason: Nicotine Cravings Otc Nicotine Pouch 0 each BUCCAL Q2H PRN Ondansetron HCl (Ondansetron 2 Mg/Ml Inj) 4 - 8 mg IVP Q8H PRN PRN Reason: Nausea And Vomiting Propranolol HCl (Propranolol 20 Mg Tablet) 60 mg PO BID COUNT INCLUDES THE [facility] Last Admin: 01/06/25 09:08 Dose: 60 mg Sodium Chloride (0.9 % Sodium Chloride 250 Ml) 250 ml IV Q24H COUNT INCLUDES THE [facility] Last Admin: 01/05/25 21:12 Dose: Not Given Transfer Discharge Sum: Hosp Hospital Course Hospital course: Aidan Vang is a 39 year old male with history of agoraphobia and anxiety disorder who underwent laparoscopic appendectomy by Dr. Guerrero on 01/02/25 for perforated appendicitis with purulent peritonitis. He has been on Zosyn since admission. His blood cultures became positive for Gram-negative rods on hospital day 3 and further information about these are still pending. He has been able to advance and tolerate a regular diet and has had minimal pain in the abdomen except at the incision sites. At the end of hospital day number 3 he developed fever. White count was reassuring stay, stable at 13. Last night he again spiked a fever and blood cultures were drawn with that. White count this morning was 15. A stat CT abdomen and pelvis was obtained which showed multiple intra-abdominal abscesses. I spoke with Dr. Allison from Interventional Radiology who agreed that these could be drained at [place]. Please note that we do not have Interventional Radiology here. I also spoke with Dr. Taylor from [facility] who accepted this patient in transfer to the hospital service. I spoke with the patient and his mother this afternoon to let them know that plan of care and answered their questions. Time Spent with Patient Time attestation: Total time spent providing and/or coordinating transfer services: Today I spent 60 minutes seeing the patient, discussing with the patient and his mother, discussing with transfer center, interventional radiologist, and hospitalist, reviewing Expanse and EPIC notes/diagnostics/labs, discussing the care plan with our care team that includes social work, PT/OT, pharmacy, RT, retirement and documenting my impressions and plan in the medical record. Exam Narrative: Exam Narrative: General: No acute distress. Awake alert oriented. Cardiovascular: Regular rate and rhythm. No murmurs, gallops, or rubs. Chest: No increased work of breathing. Clear to auscultation bilaterally. No crackles or wheezes. Abdomen: Bowel sounds present. Mild tenderness on right abdomen and over incisions. Steristrips and incisions are c/d/i, no erythema or induration. Extremities: No edema, no cyanosis or clubbing. Const: Vital Signs, click to edit/add: Vital Signs - 24 hr 01/05/25 15:58 01/05/25 17:18 01/05/25 20:11 Temperature 100.7 F H 100.5 F H 99.4 F Pulse Rate [Pulse Oximeter] 83 Respiratory Rate 17 Blood Pressure [Le ft Arm] 99/60 Blood Pressure [Ri ght Arm] Pulse Oximetry 97 Oxygen Delivery Me thod Room Air 01/05/25 23:00 01/05/25 23:00 01/06/25 02:28 Temperature 98.9 F 99.2 F Pulse Rate [Pulse Oximeter] 78 79 Respiratory Rate 18 18 17 Blood Pressure [Le ft Arm] 106/67 111/68 Blood Pressure [Ri ght Arm] Pulse Oximetry 98 98 97 Oxygen Delivery Me thod Room Air Room Air Room Air 01/06/25 08:12 01/06/25 08:12 01/06/25 13:07 Temperature 98.5 F 98.6 F Pulse Rate [Pulse Oximeter] 81 77 Respiratory Rate 16 16 16 Blood Pressure [Le ft Arm] 116/78 Blood Pressure [Ri ght Arm] 113/80 Pulse Oximetry 98 98 100 Oxygen Delivery Me thod Room Air Room Air Room Air Transfer Discharge Sum: Data Data Completed and Pending Completed studies during hospitalization: 01/02/2025 EKG: Normal sinus rhythm, 96 beats per minute, possible left atrial enlargement, T-wave abnormality, consider inferolateral ischemia. Ordering Physician: Ehsan Daniels M.D. Date of Service: 01/02/25 Procedure(s): CT chest abdomen pelv w con Accession Number(s): [id number] cc: Ehsan Daniels M.D.; Michael Rogers M.D.~ For Patients: As a result of the Cures Act, medical imaging exams and procedure reports are released immediately into your electronic medical record. You may view this report before your referring provider. If you have questions, please contact your health care provider. INDICATION: Fever TECHNIQUE: CT chest, abdomen and pelvis acquired with 79 milliliters Isovue 370 IV contrast. COMPARISON: July 09, 2022. FINDINGS: CHEST: Cardiovascular structures: Heart size is normal. Thoracic aorta and main pulmonary artery are normal in caliber. Mediastinum and douglas: No mass or adenopathy. Lungs and pleura: Lungs and pleural spaces are clear. No suspicious nodules, infiltrates, or effusions. Chest wall and axilla: No mass or adenopathy. Bones: No suspicious bone lesions. Unremarkable for age. ABDOMEN AND PELVIS: Liver: Unremarkable. Gallbladder and bile ducts: Unremarkable. Pancreas: Unremarkable. Spleen: Unremarkable. Adrenal glands: Unremarkable. Kidneys: Tiny cortical hypodensities, too small to characterize. No hydronephrosis.. GI tract: Diffuse small and large bowel circumferential wall thickening with perienteric edema. Moderately distended appendix with appendicolith about the base. No bowel obstruction. Vascular structures: Unremarkable. Lymph nodes: Multiple enlarged ileocolic lymph nodes, likely reactive. Miscellaneous: Small volume free fluid likely reactive. No free air. Pelvic Organs: Mildly distended bladder with circumferential wall thickening. Recommend correlation with urinalysis if UTI suspected.. Bones: No suspicious bone lesions. Unremarkable for age. IMPRESSION: 1. Moderately distended appendix with appendicolith suggestive of acute uncomplicated appendicitis. No drainable fluid collection. 2. Diffuse small and large bowel circumferential wall thickening with perienteric edema suggestive of acute enterocolitis, likely infectious/inflammatory in etiology. No bowel obstruction. 3. No acute intrathoracic abnormality. Please note that all CT scans at this facility use dose modulation, iterative reconstruction, and/or weight-based dosing when appropriate to reduce radiation dose to as low as reasonably achievable. Dictated by Frandy Henderson MD @ 01/02/2025 1:31:33 AM (Electronically Signed) Ordering Physician: Echo Guerrero M.D. Date of Service: 01/06/25 Procedure(s): CT abdomen pelvis w con Accession Number(s): [id number] cc: Echo Guerrero M.D.; Michael Rogers M.D.~ ADDENDUM INDICATION: Elevated labs, possible abscess post appendectomy. TECHNIQUE: Axial images were obtained from the diaphragm to the pubic symphysis. Reformats were obtained in the coronal and sagittal plane. IV Contrast: 78 cc Isovue 370 Oral Contrast: None COMPARISON: Abdomen and pelvis CT 01/02/2025 FINDINGS: Lower chest: Trace bilateral pleural effusions with 4 millimeter noncalcified pulmonary nodule in the left lower lobe. This is stable compared to the study of 4 days prior. Liver: Unremarkable. Normal in size and attenuation. No masses. Gallbladder and bile ducts: Contracted gallbladder without discrete abnormality. Spleen: Unremarkable. Normal in size without mass. Pancreas: Unremarkable. No mass or inflammation. Adrenal glands: Unremarkable. No nodules. Kidneys: Mild bilateral renal cortical thinning with no evidence of hydronephrosis. Subcentimeter hypodensities which are too small for characterization although likely renal cysts. Vasculature: Unremarkable. GI tract: Pneumoperitoneum consistent with the recent appendectomy. Trace free fluid with wall thickening of the ascending colon, sigmoid colon. Mild wall thickening of small-bowel loops within the right lower quadrant. Status post interval appendectomy. Associated fat stranding within the mesentery. Rim enhancing fluid collection within the right lower quadrant measuring up to 4.1 x 3.8 centimeters in largest diameter. Interloop abscess superior to the bladder measuring 2.9 x 2.0 centimeters. 5.7 x 3.2 centimeter abscess anterior to the rectum. Smaller subcentimeter fluid collections are noted in the mesentery as well as superior to the anterior aspect of the bladder. Pelvis: Mild bladder wall thickening, possibly due to incomplete distention. Bones: Unremarkable for age. IMPRESSION: 1. Status post interval appendectomy with multiple lower abdominal and pelvic abscesses, largest measuring 5.7 x 3.2 centimeters anterior to the rectum and the right lower quadrant measuring 4.1 x 3.8 centimeters. Interloop abscess superior to the bladder measuring 2.9 x 2.0 centimeters. Several other interloop subcentimeter abscesses are also noted. 2. Trace bilateral pleural effusions. Please note that all CT scans at this facility use dose modulation, iterative reconstruction, and/or weight-based dosing when appropriate to reduce radiation dose to as low as reasonably achievable. Dictated by Luis Miguel Allen MD @ 01/06/2025 12:58:02 PM ----- ADDENDUM ----- Results confirmed received by Dr. Guerrero at 13:02 on 01/06/2025. Dictated by Luis Miguel Allen MD @ Jan 06 2025 1:03PM (Electronically Signed) For Patients: As a result of the Century Cures Act, medical imaging exams and procedure reports are released immediately into your electronic medical record. You may view this report before your referring provider. If you have questions, please contact your health care provider. INDICATION: Elevated labs, possible abscess post appendectomy. TECHNIQUE: Axial images were obtained from the diaphragm to the pubic symphysis. Reformats were obtained in the coronal and sagittal plane. IV Contrast: 78 cc Isovue 370 Oral Contrast: None COMPARISON: Abdomen and pelvis CT 01/02/2025 FINDINGS: Lower chest: Trace bilateral pleural effusions with 4 millimeter noncalcified pulmonary nodule in the left lower lobe. This is stable compared to the study of 4 days prior. Liver: Unremarkable. Normal in size and attenuation. No masses. Gallbladder and bile ducts: Contracted gallbladder without discrete abnormality. Spleen: Unremarkable. Normal in size without mass. Pancreas: Unremarkable. No mass or inflammation. Adrenal glands: Unremarkable. No nodules. Kidneys: Mild bilateral renal cortical thinning with no evidence of hydronephrosis. Subcentimeter hypodensities which are too small for characterization although likely renal cysts. Vasculature: Unremarkable. GI tract: Pneumoperitoneum consistent with the recent appendectomy. Trace free fluid with wall thickening of the ascending colon, sigmoid colon. Mild wall thickening of small-bowel loops within the right lower quadrant. Status post interval appendectomy. Associated fat stranding within the mesentery. Rim enhancing fluid collection within the right lower quadrant measuring up to 4.1 x 3.8 centimeters in largest diameter. Interloop abscess superior to the bladder measuring 2.9 x 2.0 centimeters. 5.7 x 3.2 centimeter abscess anterior to the rectum. Smaller subcentimeter fluid collections are noted in the mesentery as well as superior to the anterior aspect of the bladder. Pelvis: Mild bladder wall thickening, possibly due to incomplete distention. Bones: Unremarkable for age. IMPRESSION: 1. Status post interval appendectomy with multiple lower abdominal and pelvic abscesses, largest measuring 5.7 x 3.2 centimeters anterior to the rectum and the right lower quadrant measuring 4.1 x 3.8 centimeters. Interloop abscess superior to the bladder measuring 2.9 x 2.0 centimeters. Several other interloop subcentimeter abscesses are also noted. 2. Trace bilateral pleural effusions. Please note that all CT scans at this facility use dose modulation, iterative reconstruction, and/or weight-based dosing when appropriate to reduce radiation dose to as low as reasonably achievable. Dictated by Luis Miguel Allen MD @ 01/06/2025 12:58:02 PM (Electronically Signed) Discharge Plan Discharge Disposition: [facility] Acute Care Hospital Discharge Location: [facility] Date of Admission: 01/02/25 06:06 Attending Provider on Discharge: Marika Connor Primary Care Provider: Michael Rogers Discharge Orders: Transfer of Care to Other Hospital (ORDER); Ordered 01/06/25 Ordered By: Marika Connor Additional Instructions: Nephrology 1 month for elevated creatinine Oxygen: No Urinary Catheter: No Drips/Lines: None Services not available here: Interventional radiology
--- NOTE | 2025-01-06 17:39 | PC.NURSE ---
1500- 1705: Pt. is AOX4. Pt. is cooperative & does not have pain. VSS. Pt. verbalized understanding of transfer to [place]. Nurse to nurse hand off done by charge nurse on duty. EMS arrived for pt., recent VS provided, pt. signature for transfer by EMS completed. Pt. mother forgot a quilt. RN called mother and she will p/u in several days. Quilt placed in lost and found on unit, room 285.
== END 2025-01-06 17:05 | disposition short-term general hospital (02) | DRG 225 ==
LOC: ED 02:51 → SS 03:23 → MEDSURG 06:06 → SS 15:32 → MEDSURG 15:32
PROVIDERS: Student in an Organized Health Care Education/Training Program; Admitting Provider Surgery; Emergency Provider Family Medicine; PCP Family Medicine; Visit Provider Surgery
PROC: 0DTJ4ZZ Resection of Appendix, Percutaneous Endoscopic Approach (ICD-10-PCS; CPT 44970; principal; 2025-01-02 03:15)
DX: K35.33 Acute appendicitis with perforation, localized peritonitis, and gangrene, with abscess (principal); R78.81 Bacteremia; B96.6 Bacteroides fragilis [B. fragilis] as the cause of diseases classified elsewhere; B96.89 Other specified bacterial agents as the cause of diseases classified elsewhere; N17.9 Acute kidney failure, unspecified; E83.42 Hypomagnesemia; E86.0 Dehydration; R74.8 Abnormal levels of other serum enzymes; K52.9 Noninfective gastroenteritis and colitis, unspecified; F41.1 Generalized anxiety disorder; F40.01 Agoraphobia with panic disorder; Z79.899 Other long term (current) drug therapy; F17.290 Nicotine dependence, other tobacco product, uncomplicated
CPT/HCPCS: 00840; 36415; 71260; 74177; 80048; 80076; 80306; 81001; 83605; 83690; 83735; 84443; 84484; 85025; 85027; 87040; 87076; 87181; 87493; 88304; 99140; 99285; A9270; J0330; J0665; J0702; J1100; J1171; J1630; J1885; J2371; J2405; J2543; J2704; J3010; J3375; J3475; J3490; J7030; J7050; J7120; Q9967

== ENCOUNTER 2025-01-06 16:56 | Outpatient (CLI) | payer BC, SELFPAY | END 2025-01-06 16:57 | disposition home or self-care (01) | LOC: AMB 01-07 15:56 | PROVIDERS: PCP Family Medicine; Visit Provider Emergency Medicine Emergency Medical Services | DX: K65.1 Peritoneal abscess (principal); R78.81 Bacteremia; Z90.49 Acquired absence of other specified parts of digestive tract | CPT/HCPCS: A0425; A0427 ==